=== PATIENT | female | born 1930 | race Caucasian/White ===

== ENCOUNTER 2017-08-18 09:31 | Inpatient (IN) | payer MEDICARE ==
[2017-08-18] MEDS: fentaNYL PF VIAL 100 MCG/2 ML VIAL IV ×3 (10:33→14:35)
[2017-08-18 10:43] LABS: ADD MAN DIFF? NO
[2017-08-18 10:45] LABS: BASO # 0.1 x10^3/uL (0.0-0.2); BASO % 1 % (0-3); EOS # 0.1 x10^3/uL (0.0-0.7); EOS % 1 % (0-3); HEMATOCRIT 45.5 % (36.0-47.0); HEMOGLOBIN 15.7 g/dL (12.0-15.5); LYMPH # 1.6 x10^3/uL (1.0-4.8); LYMPH % 20 % (24-48); MEAN CORPUSCULAR HEMOGLOBIN 32 pg (25-35); MEAN CORPUSCULAR HGB CONC 35 g/dL (31-37); MEAN CORPUSCULAR VOLUME 93 fL (79-100); MONO % 13 % (0-9); NEUT # 5.5 x10^3uL (1.8-7.7); NEUT % 66 % (31-73); PLATELET COUNT 208 x10^3/uL (140-400); RED CELL DISTRIBUTION WIDTH 14.3 % (11.5-14.5); WHITE BLOOD COUNT 8.3 x10^3/uL (4.0-11.0)
[2017-08-18 10:54] LABS: ANION GAP 9 (6-14); BLOOD UREA NITROGEN 14 mg/dL (7-20); BUN/CREATININE RATIO 18 (6-20); CALCIUM 9.6 mg/dL (8.5-10.1); CARBON DIOXIDE 28 mmol/L (21-32); CHLORIDE 104 mmol/L (98-107); CREATININE 0.8 mg/dL (0.6-1.0); GFR 68.2; GLUCOSE 112 mg/dL (70-99); SODIUM 141 mmol/L (136-145)
[2017-08-18 11:02] LABS: TROPONINI 0.029 ng/mL (0.000-0.055)
[2017-08-18 11:02] LABS: ALBUMIN 3.2 g/dL (3.4-5.0); ALBUMIN/GLOBULIN RATIO 0.8 (1.0-1.7); ALK PHOS 97 U/L (46-116); ALT (SGPT) 19 U/L (14-59); AST (SGOT) 26 U/L (15-37); TOTAL BILIRUBIN 0.7 mg/dL (0.2-1.0); TOTAL PROTEIN 7.3 g/dL (6.4-8.2)
[2017-08-18 11:05] LABS: NT-PRO BNP 584 pg/mL (0-449)
[2017-08-18] MEDS ORDERED: CONTRAST GIVEN MC (13:00)
[2017-08-18] MEDS: IOHEXOL 300 MG/ML 100ML VIAL. IV (13:01)
[2017-08-18 13:33] LABS: BILIRUBIN,URINE NEGATIVE (NEG); CLARITY,URINE CLEAR; COLOR,URINE YELLOW; GLUCOSE,URINE NEGATIVE (NEG); NITRITE,URINE POSITIVE (NEG); PROTEIN,URINE NEGATIVE (NEG-TRACE)
[2017-08-18 13:37] LABS: BARBITURATES NEG (NEG); BENZODIAZEPINES NEG (NEG); CANNABINOIDS NEG (NEG); COCAINE NEG (NEG); METHADONE NEG (NEG); OPIATES POS (NEG); PHENCYCLIDINE NEG (NEG)
[2017-08-18 13:42] LABS: AMPHETAMINE/METHAMPHETAMINE NEG (NEG); ETHANOL, URINE NEG (NEG)
[2017-08-18 13:48] LABS: BACTERIA,URINE MANY /HPF (0-FEW); RBC,URINE 0 /HPF (0-2); SQUAMOUS EPITHELIAL CELL,UR MANY /LPF; WBC,URINE >40 /HPF (0-4)
[2017-08-18] MEDS ORDERED: ACETAMINOPHEN 325 MG TABLET. PO ×2 (14:45→15:15)
[2017-08-18] MEDS ORDERED: MORPHINE SULFATE 4 MG/ML DISP.SYRIN. IV (14:45)
[2017-08-18] MEDS ORDERED: ONDANSETRON PF 4 MG/2 ML VIAL. IV ×2 (14:45→15:15)
[2017-08-18] MEDS ORDERED: DOCUSATE SODIUM 100 MG CAPSULE. PO (15:15)
[2017-08-18] MEDS ORDERED: QUEtiapine 25 MG TABLET. PO (15:15)
[2017-08-18] MEDS ORDERED: hydrALAZINE 20 MG/ML VIAL. IVP (15:15)
[2017-08-18] MEDS: NICOTINE 14MG PATCH. TD (15:30)
[2017-08-18] MEDS: ENOXAPARIN 40 MG/0.4 ML SYRINGE. SQ (16:00)
[2017-08-18] MEDS: IV NORMAL SALINE 1000ML BAG 1,000 ML IV (16:45)
[2017-08-18] MEDS: DONEPEZIL HCL 5 MG TABLET. PO (20:42)
[2017-08-18] MEDS: MORPHINE SULFATE 4 MG/ML DISP.SYRIN. IV (20:43)
[2017-08-19] MEDS: MORPHINE SULFATE 4 MG/ML DISP.SYRIN. IV ×4 (02:31→23:36)
[2017-08-19] MEDS: IV NORMAL SALINE 1000ML BAG 1,000 ML IV (04:18)
[2017-08-19 04:47] LABS: ADD MAN DIFF? NO
[2017-08-19 04:53] LABS: BASO # 0.1 x10^3/uL (0.0-0.2); BASO % 1 % (0-3); EOS # 0.2 x10^3/uL (0.0-0.7); EOS % 2 % (0-3); HEMATOCRIT 42.3 % (36.0-47.0); HEMOGLOBIN 14.6 g/dL (12.0-15.5); LYMPH # 1.8 x10^3/uL (1.0-4.8); LYMPH % 18 % (24-48); MEAN CORPUSCULAR HEMOGLOBIN 32 pg (25-35); MEAN CORPUSCULAR HGB CONC 35 g/dL (31-37); MEAN CORPUSCULAR VOLUME 93 fL (79-100); MONO # 1.1 x10^3/uL (0.0-1.1); MONO % 11 % (0-9); NEUT # 6.6 x10^3uL (1.8-7.7); NEUT % 68 % (31-73); PLATELET COUNT 187 x10^3/uL (140-400); RED BLOOD COUNT 4.55 x10^6/uL (3.50-5.40); RED CELL DISTRIBUTION WIDTH 13.9 % (11.5-14.5); WHITE BLOOD COUNT 9.7 x10^3/uL (4.0-11.0)
[2017-08-19 05:13] LABS: ANION GAP 10 (6-14); BLOOD UREA NITROGEN 13 mg/dL (7-20); CALCIUM 8.6 mg/dL (8.5-10.1); CARBON DIOXIDE 24 mmol/L (21-32); CHLORIDE 105 mmol/L (98-107); CREATININE 0.7 mg/dL (0.6-1.0); GFR 79.5; GLUCOSE 104 mg/dL (70-99); POTASSIUM 3.9 mmol/L (3.5-5.1); SODIUM 139 mmol/L (136-145)
[2017-08-19] MEDS: CHOLECALCIFEROL (VITAMIN D3) 1,000 UNIT TABLET PO (07:50)
[2017-08-19] MEDS: NICOTINE 14MG PATCH. TD (07:51)
[2017-08-19] MEDS: LIDOCAINE (700MG/PATCH) PATCH. TD (11:11)
[2017-08-19] MEDS: oxyCODONE/APAP 5/325 1 TAB TABLET PO ×2 (11:11→17:24)
[2017-08-19] MEDS: LORazepam 0.5 MG TABLET PO ×2 (12:14→23:36)
[2017-08-19] MEDS: cefTRIAXone IV Push 1 GM VIAL. IVP (15:20)
[2017-08-19] MEDS: ENOXAPARIN 40 MG/0.4 ML SYRINGE. SQ (16:00)
[2017-08-19] MEDS: HYDROcodone/APAP 5/325MG 1 TAB TABLET PO (18:47)
[2017-08-19] MEDS: LACTOBACILLUS RHAMNOSUS GG 1 CAPSULE. PO (21:00)
[2017-08-19] MEDS: PATCH REMOVAL. MC (21:00)
[2017-08-19] MEDS: DONEPEZIL HCL 5 MG TABLET. PO (21:00)
[2017-08-20] MEDS: HYDROcodone/APAP 5/325MG 1 TAB TABLET PO (03:09)
[2017-08-20 07:24] LABS: ADD MAN DIFF? NO
[2017-08-20 07:33] LABS: BASO # 0.1 x10^3/uL (0.0-0.2); BASO % 1 % (0-3); EOS # 0.2 x10^3/uL (0.0-0.7); EOS % 3 % (0-3); HEMATOCRIT 41.9 % (36.0-47.0); HEMOGLOBIN 14.3 g/dL (12.0-15.5); LYMPH # 1.7 x10^3/uL (1.0-4.8); LYMPH % 25 % (24-48); MEAN CORPUSCULAR HEMOGLOBIN 32 pg (25-35); MEAN CORPUSCULAR HGB CONC 34 g/dL (31-37); MEAN CORPUSCULAR VOLUME 93 fL (79-100); MONO % 15 % (0-9); NEUT # 3.9 x10^3uL (1.8-7.7); NEUT % 57 % (31-73); PLATELET COUNT 168 x10^3/uL (140-400); RED BLOOD COUNT 4.49 x10^6/uL (3.50-5.40); WHITE BLOOD COUNT 6.9 x10^3/uL (4.0-11.0)
[2017-08-20 07:47] LABS: ANION GAP 7 (6-14); BLOOD UREA NITROGEN 12 mg/dL (7-20); CALCIUM 8.5 mg/dL (8.5-10.1); CARBON DIOXIDE 24 mmol/L (21-32); CHLORIDE 107 mmol/L (98-107); CREATININE 0.7 mg/dL (0.6-1.0); GFR 79.5; GLUCOSE 95 mg/dL (70-99); POTASSIUM 3.7 mmol/L (3.5-5.1); SODIUM 138 mmol/L (136-145)
[2017-08-20] MEDS: LACTOBACILLUS RHAMNOSUS GG 1 CAPSULE. PO ×3 (08:21→21:00)
[2017-08-20] MEDS: CHOLECALCIFEROL (VITAMIN D3) 1,000 UNIT TABLET PO ×2 (08:22→08:29)
[2017-08-20] MEDS: NICOTINE 14MG PATCH. TD (08:24)
[2017-08-20] MEDS: MORPHINE SULFATE 4 MG/ML DISP.SYRIN. IV (08:26)
[2017-08-20] MEDS: LIDOCAINE (700MG/PATCH) PATCH. TD (08:26)
[2017-08-20 10:10] LABS: INR 1.1 (0.8-1.1); PARTIAL THROMBOPLASTIN TIME 30 SEC (24-38); PROTHROMBIN TIME PATIENT 13.9 SEC (11.7-14.0)
[2017-08-20] MEDS: oxyCODONE/APAP 5/325 1 TAB TABLET PO ×2 (11:43→16:01)
[2017-08-20] MEDS: ENOXAPARIN 40 MG/0.4 ML SYRINGE. SQ (13:55)
[2017-08-20] MEDS: LORazepam 0.5 MG TABLET PO (14:00)
[2017-08-20] MEDS: cefTRIAXone IV Push 1 GM VIAL. IVP (14:02)
[2017-08-20] MEDS: DONEPEZIL HCL 5 MG TABLET. PO (21:00)
[2017-08-20] MEDS: PATCH REMOVAL. MC (21:00)
[2017-08-21] MEDS: HYDROcodone/APAP 5/325MG 1 TAB TABLET PO ×2 (02:13→17:44)
[2017-08-21] MEDS ORDERED: LIDOCAINE 1% PF 2 ML VIAL. ID (07:00)
[2017-08-21] MEDS ORDERED: MORPHINE SULFATE 4 MG/ML DISP.SYRIN. IV (07:00)
[2017-08-21] MEDS ORDERED: HYDROmorphone 2 MG/ML VIAL IV (07:00)
[2017-08-21] MEDS ORDERED: fentaNYL PF VIAL 100 MCG/2 ML VIAL IV (07:00)
[2017-08-21] MEDS: IV RINGERS,LACTATED 1000ML 1,000 ML IV (07:00)
[2017-08-21] MEDS: NICOTINE 14MG PATCH. TD (09:00)
[2017-08-21] MEDS: LIDOCAINE (700MG/PATCH) PATCH. TD (09:00)
[2017-08-21] MEDS: oxyCODONE/APAP 5/325 1 TAB TABLET PO (09:10)
[2017-08-21] MEDS: LORazepam 0.5 MG TABLET PO (09:10)
[2017-08-21] MEDS: CHOLECALCIFEROL (VITAMIN D3) 1,000 UNIT TABLET PO (09:11)
[2017-08-21] MEDS: LACTOBACILLUS RHAMNOSUS GG 1 CAPSULE. PO ×2 (09:14→20:17)
[2017-08-21] MEDS: CIPROFLOXACIN HCL 250 MG TABLET. PO ×2 (10:28→20:17)
[2017-08-21] MEDS: IV NORMAL SALINE 1000ML BAG 1,000 ML IV (11:00)
[2017-08-21] MEDS ORDERED: IOHEXOL 240 MG/ML 50ML VIAL. (12:25)
[2017-08-21] MEDS ORDERED: LIDOCAINE WITH 8.4% SOD BICARB 3 ML DISP.SYRIN. (12:25)
[2017-08-21] MEDS ORDERED: CONTRAST GIVEN MC (13:00)
[2017-08-21] MEDS: IOHEXOL 240 MG/ML 50ML VIAL. IJ (13:00)
[2017-08-21] MEDS: LIDOCAINE WITH 8.4% SOD BICARB 3 ML DISP.SYRIN. IJ (13:00)
[2017-08-21] MEDS: fentaNYL PF VIAL 100 MCG/2 ML VIAL IV ×4 (14:06→15:01)
[2017-08-21] MEDS: PROCHLORPERAZINE 10 MG/2 ML VIAL. IV (14:23)
[2017-08-21] MEDS: ENOXAPARIN 40 MG/0.4 ML SYRINGE. SQ (16:00)
[2017-08-21] MEDS: MORPHINE SULFATE 4 MG/ML DISP.SYRIN. IV (16:15)
[2017-08-21] MEDS: PATCH REMOVAL. MC (19:14)
[2017-08-21] MEDS: traMADol 50 MG TABLET PO (20:17)
[2017-08-21] MEDS: DONEPEZIL HCL 5 MG TABLET. PO (20:17)
[2017-08-22 03:26] LABS: ADD MAN DIFF? NO
[2017-08-22 03:29] LABS: BASO # 0.1 x10^3/uL (0.0-0.2); BASO % 1 % (0-3); EOS # 0.2 x10^3/uL (0.0-0.7); EOS % 3 % (0-3); HEMATOCRIT 41.3 % (36.0-47.0); HEMOGLOBIN 14.1 g/dL (12.0-15.5); LYMPH # 1.9 x10^3/uL (1.0-4.8); LYMPH % 26 % (24-48); MEAN CORPUSCULAR HEMOGLOBIN 32 pg (25-35); MEAN CORPUSCULAR HGB CONC 34 g/dL (31-37); MEAN CORPUSCULAR VOLUME 93 fL (79-100); MONO % 14 % (0-9); NEUT # 4.3 x10^3uL (1.8-7.7); NEUT % 57 % (31-73); PLATELET COUNT 175 x10^3/uL (140-400); RED BLOOD COUNT 4.42 x10^6/uL (3.50-5.40); WHITE BLOOD COUNT 7.5 x10^3/uL (4.0-11.0)
[2017-08-22 04:04] LABS: ANION GAP 6 (6-14); BLOOD UREA NITROGEN 10 mg/dL (7-20); CALCIUM 8.8 mg/dL (8.5-10.1); CARBON DIOXIDE 25 mmol/L (21-32); CHLORIDE 106 mmol/L (98-107); CREATININE 0.6 mg/dL (0.6-1.0); GLUCOSE 97 mg/dL (70-99); POTASSIUM 3.9 mmol/L (3.5-5.1); SODIUM 137 mmol/L (136-145)
[2017-08-22] MEDS: NICOTINE 14MG PATCH. TD (09:24)
[2017-08-22] MEDS: LACTOBACILLUS RHAMNOSUS GG 1 CAPSULE. PO (09:24)
[2017-08-22] MEDS: CHOLECALCIFEROL (VITAMIN D3) 1,000 UNIT TABLET PO (09:24)
[2017-08-22] MEDS: LIDOCAINE (700MG/PATCH) PATCH. TD (09:24)
[2017-08-22] MEDS: CIPROFLOXACIN HCL 250 MG TABLET. PO (09:26)
[2017-08-22] MEDS: ENOXAPARIN 40 MG/0.4 ML SYRINGE. SQ (16:00)
== END 2017-08-22 16:10 | DRG 516 ==
LOC: ER 09:31 → 6 SOUTH 14:25
PROC: 0PS43ZZ Reposition Thoracic Vertebra, Percutaneous Approach (ICD-10-PCS; principal; 2017-08-21)
PROC: 0PU43JZ Supplement Thoracic Vertebra with Synthetic Substitute, Percutaneous Approach (ICD-10-PCS; 2017-08-21)
DX: S22.089A Unspecified fracture of T11-T12 vertebra, initial encounter for closed fracture (principal); E44.1 Mild protein-calorie malnutrition; G62.9 Polyneuropathy, unspecified; G30.9 Alzheimer's disease, unspecified; F02.80 Dementia in other diseases classified elsewhere, unspecified severity, without behavioral disturbance, psychotic disturbance, mood disturbance, and anxiety; N39.0 Urinary tract infection, site not specified; M48.061 Spinal stenosis, lumbar region without neurogenic claudication; W18.39XA Other fall on same level, initial encounter; B96.89 Other specified bacterial agents as the cause of diseases classified elsewhere; Z96.641 Presence of right artificial hip joint; Z96.659 Presence of unspecified artificial knee joint; M16.12 Unilateral primary osteoarthritis, left hip; Z66 Do not resuscitate; Z87.891 Personal history of nicotine dependence; Z68.24 Body mass index [BMI] 24.0-24.9, adult; Y93.89 Activity, other specified; Y92.89 Other specified places as the place of occurrence of the external cause; Y99.8 Other external cause status
CPT/HCPCS: 22513; 36415; 70450; 71045; 72100; 72125; 72146; 72148; 73502; 74177; 80048; 80053; 80307; 81001; 82306; 83880; 84484; 85025; 85610; 85730; 87086; 93005; 96365; 96375; 96376; 97162-GP; 97166-GO; 97530-GO; 97530-GP; 99285; 99285-25; C1758; C1892; J0690; J0696; J0780; J2270; J3010; J7030; Q9966; Q9967

== ENCOUNTER 2019-03-11 10:04 | Inpatient (IN) | payer MEDICARE, MEDICAID ==
[~2019-03-11] VITALS: Ht 165.1 cm; Wt 76.7 kg
[~2019-03-11 10:04] MED LIST: ACET160O49 PO; ACET325T9 PO; ACET500T68 PO; ALPR0.5T6 PO; AMOX500C PO; ASCO500T2 PO; BISA10SU4 RC; BISM262O20 PO; CHOL10003 PO; CIPR500T94 PO; DONE5TAB7 PO; GUAI118L59 PO; HEPA50003 SQ; HYDR-2761 PO; LACT1CAP19 PO; LOPE2TAB56 PO; MAG355OR11 PO; MAGN2400 PO; MENT113O5 TP; MULT1TAB90 PO; NA P133E2 RC; NEOM1PAC TP; NICO1PAT25 TP; NYST60PO TP; PROC25SU21 RC; [UNRECOGNIZED DRUG - CODE] PO
--- NOTE | 2019-03-11 10:45 | PHYS DOC ---
Past Medical History Past Medical History: Dementia, Other Additional Past Medical Histor: "BLADDER CONTROL PROBLEMS","MEMORY PROBLEMS",ALZHEIMER'S Past Surgical History: Hip Replacement, Knee Replacement Alcohol Use: Heavy Drug Use: None Adult General Chief Complaint Chief Complaint: WOUND CHECK HPI HPI Patient is a 88 year old female patient resident of correction with history of dementia who presents EMS because of bilateral leg edema. Patient has dementia and is alert and oriented 1 and unable to give history. [facility] staff reported that she has had bilateral lower extremity erythema and edema for 3 weeks that did not get better with 3 courses of oral antibiotic and refused to take oral medication. Review of Systems Review of Systems Unable to obtain because of dementia Allergies Allergies Allergies Coded Allergies Type Severity Reaction Last Updated Verified No Known Drug Allergies 09/16/14 No Physical Exam Physical Exam Constitutional: Mild distress, non-toxic appearance. [] HENT: Normocephalic, atraumatic. Eyes: PERRLA, EOMI, conjunctiva normal, no discharge. [] Neck: Normal range of motion, no tenderness, supple, no stridor. [] Cardiovascular:Heart rate regular rhythm, no murmur [] Lungs & Thorax: Bilateral breath sounds clear to auscultation [] Abdomen: Bowel sounds normal, soft, no tenderness, no masses, no pulsatile masses. [] Skin: Warm, dry, no erythema, no rash. [] Extremities: Bilateral lower extremity with edema and erythema from toes to knees with a large wound in dorsal side of right foot Neurologic: Alert and oriented X 1, no focal deficits noted. [] Psychologic: Affect anxious, unable to evaluate Current Patient Data Vital Signs Vital Signs Date Time Temp Pulse Resp B/P (MAP) Pulse Ox O2 Delivery O2 Flow Rate FiO2 03/11/19 10:22 98.1 80 20 125/80 (95) 95 Room Air 98.1 EKG EKG [] Radiology/Procedures Radiology/Procedures [][facility] [address] [place] [address] IMAGING REPORT Signed PATIENT: JEROME MOSESUNT: [id number] : 1930 LOCATION: [facility]TH AGE: 88 SEX: F EXAM STATUS: ADM IN ORD. PHYSICIAN: JESSICA DAMON MD REASON: bilateral lower extremity infection PROCEDURE: PORTABLE CHEST 1V EXAM: CHEST ONE VIEW. HISTORY: Infection. COMPARISON: 08/18/2017. FINDINGS: A frontal view of the chest is obtained. The right hemidiaphragm is mildly elevated. Linear opacities in both bases most likely indicate atelectasis. A small right pleural effusion cannot be excluded. There is no pneumothorax. The heart is not enlarged. There are atherosclerotic calcifications of the aorta. IMPRESSION: 1. Suspect a small right pleural effusion. Mild basilar atelectasis. Electronically signed by: Harleen Cabello MD (03/11/2019 11:53 AM) [facility] DICTATED and SIGNED BY: RADHA CABELLO MD DATE: 03/11/19 1155 Course & Med Decision Making Course & Med Decision Making Pertinent Labs and Imaging studies reviewed. (See chart for details) Evaluation of patient in ER showed 88-year-old male patient resident of correction with history of dementia brought in because of bilateral lower extremity cellulitis that did not get better with several course of antibiotic given at correction. Patient was afebrile without tachycardia, hypotension, leukocytosis. Lactic acid was mildly elevated. Patient treated with antibiotic in ER. Patient requiring admission for further evaluation and treatment. Discussed with Dr. Cortez who is in agreement with admission. Discussed findings and plan with patient and family, who acknowledge understanding and agreement. Dragon Disclaimer Dragon Disclaimer This electronic medical record was generated, in whole or in part, using a voice recognition dictation system. Departure Departure Impression: Primary Impression: Bilateral lower leg cellulitis Disposition: ADMITTED INPATIENT (at 11:30) Admitting Physician: FREDDIE (Dr Cortez accepted admission at 1129) Condition: IMPROVED Referrals: AUSTIN PAEZ MD (PCP) Date and Time of Reassessment Date: Mar 11, 2019 Time: 11:30 Fluid Challenge Is the fluid challenge complet: No (No hypotension, tachycardia,fever) IBW Target Volume Used: No BMI > 30: No Vital Signs Vital Signs: Vital Signs Date Time Temp Pulse Resp B/P (MAP) Pulse Ox O2 Delivery O2 Flow Rate FiO2 03/11/19 10:22 98.1 80 20 125/80 (95) 95 Room Air 98.1 Temperature Source: Oral Respirations Respiratory Effort: Normal, Non-Labored Respiratory Pattern: Normal Cardiovascular Pulse Rhythm: Regular Heart: Nml rate, reg. rhythm Lung Sounds Breath Sounds: Clear Capillary Refil Capillary Refill: Rt Hand < 3 seconds Peripheral Pulse Pulse Location: Radial Pulse Strength: Weak (1+) Pulse Assessment Method: NIBP Integumentary Skin Moisture: Dry JESSICA DAMON MD Mar 11, 2019 10:45
[2019-03-11 11:32] LABS: BASO # 0.1 x10^3/uL (0.0-0.2); BASO % 1 % (0-3); EOS # 0.1 x10^3/uL (0.0-0.7); EOS % 1 % (0-3); HEMOGLOBIN 14.1 g/dL (12.0-15.5); LYMPH # 1.1 x10^3/uL (1.0-4.8); LYMPH % 17 % (24-48); MEAN CORPUSCULAR HEMOGLOBIN 31 pg (25-35); MEAN CORPUSCULAR HGB CONC 34 g/dL (31-37); MEAN CORPUSCULAR VOLUME 91 fL (79-100); MONO # 1.3 x10^3/uL (0.0-1.1); MONO % 20 % (0-9); NEUT # 3.8 x10^3/uL (1.8-7.7); NEUT % 61 % (31-73); PLATELET COUNT 194 x10^3/uL (140-400); RED BLOOD COUNT 4.61 x10^6/uL (3.50-5.40); RED CELL DISTRIBUTION WIDTH 14.5 % (11.5-14.5); WHITE BLOOD COUNT 6.3 x10^3/uL (4.0-11.0)
[2019-03-11] MEDS ORDERED: VANCOMYCIN 1GM IVPB FOR OMNI 250 ML IV ONE (11:45)
[2019-03-11 11:46] LABS: GFR 52.6; POTASSIUM 3.9 mmol/L (3.5-5.1)
--- NOTE | 2019-03-11 11:55 | RAD ---
EXAM: CHEST ONE VIEW. HISTORY: Infection. COMPARISON: 08/18/2017. FINDINGS: A frontal view of the chest is obtained. The right hemidiaphragm is mildly elevated. Linear opacities in both bases most likely indicate atelectasis. A small right pleural effusion cannot be excluded. There is no pneumothorax. The heart is not enlarged. There are atherosclerotic calcifications of the aorta. IMPRESSION: 1. Suspect a small right pleural effusion. Mild basilar atelectasis. Electronically signed by: Harleen Cabello MD (03/11/2019 11:53 AM) [facility]
[2019-03-11 11:59] LABS: ALBUMIN 2.9 g/dL (3.4-5.0); ALBUMIN/GLOBULIN RATIO 0.7 (1.0-1.7); TOTAL BILIRUBIN 0.2 mg/dL (0.2-1.0); TOTAL PROTEIN 6.8 g/dL (6.4-8.2)
[2019-03-11 12:04] LABS: % BASOS 1 % (0-3); % EOS 1 % (0-5); % LYMPHS 27 % (24-48); % MONOS 15 % (0-10); % SEGS 56 % (35-66); PLT ESTIMATE ADEQUATE (ADEQUATE)
[2019-03-11 12:10] VITALS: BP 106/58
--- NOTE | 2019-03-11 13:26 | NUR ---
pt was supposed to have been given a dose of IV vanco in ER, was not given before coming to the floor, discussed with Dr. toro, was told to wait until ID sees pt and decides what ATB to use.
--- NOTE | 2019-03-11 14:22 | NUR ---
Wound Care Wound care consult for BLE cellulitis with VLU's. Cleansed areas, measured wounds and redressed with Medihoney, Xeroform, ABD's and Kerlix. No other wounds noted on full skin inspection. Pt left on her left side with heels floated. WC will continue to follow for possible changes. Pt has wound to right forehead that she is refusing assessment of at this time.
--- NOTE | 2019-03-11 14:30 | PDOC ---
Infectious Disease Note Vital Sign Vital Signs Vital Signs Date Time Temp Pulse Resp B/P (MAP) Pulse Ox O2 Delivery O2 Flow Rate FiO2 03/11/19 13:28 Room Air 03/11/19 12:10 76 18 106/58 (74) 93 03/11/19 10:22 98.1 98.1 Labs Lab Laboratory Tests Test 03/11/19 11:10 White Blood Count 6.3 x10^3/uL (4.0-11.0) Red Blood Count 4.61 x10^6/uL (3.50-5.40) Hemoglobin 14.1 g/dL (12.0-15.5) Hematocrit 42.0 % (36.0-47.0) Mean Corpuscular Volume 91 fL (79-100) Mean Corpuscular Hemoglobin 31 pg (25-35) Mean Corpuscular Hemoglobin Concent 34 g/dL (31-37) Red Cell Distribution Width 14.5 % (11.5-14.5) Platelet Count 194 x10^3/uL (140-400) Neutrophils (%) (Auto) 61 % (31-73) Lymphocytes (%) (Auto) 17 % (24-48) Monocytes (%) (Auto) 20 % (0-9) Eosinophils (%) (Auto) 1 % (0-3) Basophils (%) (Auto) 1 % (0-3) Neutrophils # (Auto) 3.8 x10^3/uL (1.8-7.7) Lymphocytes # (Auto) 1.1 x10^3/uL (1.0-4.8) Monocytes # (Auto) 1.3 x10^3/uL (0.0-1.1) Eosinophils # (Auto) 0.1 x10^3/uL (0.0-0.7) Basophils # (Auto) 0.1 x10^3/uL (0.0-0.2) Segmented Neutrophils % 56 % (35-66) Lymphocytes % 27 % (24-48) Monocytes % 15 % (0-10) Eosinophils % 1 % (0-5) Basophils % 1 % (0-3) Platelet Estimate Adequate (ADEQUATE) Prothrombin Time 14.0 SEC (11.7-14.0) Prothromb Time International Ratio 1.1 (0.8-1.1) Activated Partial Thromboplast Time 30 SEC (24-38) Sodium Level 140 mmol/L (136-145) Potassium Level 3.9 mmol/L (3.5-5.1) Chloride Level 103 mmol/L (98-107) Carbon Dioxide Level 29 mmol/L (21-32) Anion Gap 8 (6-14) Blood Urea Nitrogen 12 mg/dL (7-20) Creatinine 1.0 mg/dL (0.6-1.0) Estimated GFR (Cockcroft-Gault) 52.6 BUN/Creatinine Ratio 12 (6-20) Glucose Level 100 mg/dL (70-99) Lactic Acid Level 3.0 mmol/L (0.4-2.0) Calcium Level 9.0 mg/dL (8.5-10.1) Total Bilirubin 0.2 mg/dL (0.2-1.0) Aspartate Amino Transf (AST/SGOT) 37 U/L (15-37) Alanine Aminotransferase (ALT/SGPT) 31 U/L (14-59) Alkaline Phosphatase 89 U/L (46-116) VA-Ype-C-Type Natriuretic Peptide 156 pg/mL (0-449) Total Protein 6.8 g/dL (6.4-8.2) Albumin 2.9 g/dL (3.4-5.0) Albumin/Globulin Ratio 0.7 (1.0-1.7) Objective Assessment Fabian LE celllulitis Bilat foot wounds Lactic acidosis Tinea LE edema Recent Rocephin/keflex/diflucan Plan Plan of Care Given recent abx will dose Meropenem/Micafungin and Daptomycin F/u labs and cults D/w nursing and wound care team Wound care per primary and wound care team [facility] records reviewed Thank you # [id number] JOSE L FREEMAN MD Mar 11, 2019 14:30
--- NOTE | 2019-03-11 14:59 | HP ---
ADMIT DATE: 03/11/2019 CHIEF COMPLAINT: Foot infection. HISTORY OF PRESENT ILLNESS: The patient is a pleasant 88-year-old female, who presented to the ER with bilateral foot pain and swelling. There is some drainage. She has obvious cellulitis, rates her pain 10/10. She appears to be depressed. She is very sarcastic at times. She states she increased her home meds. Moving makes it worse, sitting still makes it better. Describes as agonizing. I discussed the case with ER physician. We are going to admit the patient with consultation to Infectious Disease. She also has an abnormal chest x-ray with some atelectasis and pleural effusion. We are going to consult Pulmonary Medicine for that. PAST MEDICAL HISTORY: Dementia, hip replacement, knee replacement. ALLERGIES: None. FAMILY HISTORY: Hypertension. SOCIAL HISTORY: From the record, it appears she drinks heavily. No drugs or smoking. MEDICATIONS: Reviewed, please refer to the MRAD. REVIEW OF SYSTEMS: GENERAL: No history of weight change, weakness or fevers. SKIN: No bruising, hair changes or rashes. EYES: No blurred, double or loss of vision. NOSE AND THROAT: No history of nosebleeds, hoarseness or sore throat. HEART: No history of palpitations, chest pain or shortness of breath on exertion. LUNGS: Denies cough, hemoptysis, wheezing or shortness of breath. GASTROINTESTINAL: Denies changes in appetite, nausea, vomiting, diarrhea or constipation. GENITOURINARY: No history of frequency, urgency, hesitancy or nocturia. NEUROLOGIC: Denies history of numbness, tingling, tremor or weakness. PSYCHIATRIC: No history of panic, anxiety or depression. ENDOCRINE: No history of heat or cold intolerance, polyuria or polydipsia. EXTREMITIES: She complains of bilateral foot pain and erythema. PHYSICAL EXAMINATION: VITALS: Within normal limits and are stable. GENERAL: No apparent distress. Alert and oriented. HEENT: Head is normocephalic, atraumatic, pupils were equally round and reactive to light and accommodation. NECK: Supple, no JVD, no thyromegaly was noted. LUNGS: Clear to auscultation in all lung haley without rhonchi or wheezing. HEART: RRR, S1, S2 present. Peripheral pulses intact, no obvious murmurs were noted. ABDOMEN: Soft, nontender. Positive bowel sounds no organomegaly, normal bowel sounds. EXTREMITIES: She has bilateral foot cellulitis with some swelling and discharge. Please see the pictures. NEUROLOGIC: Normal speech, normal tone. A & O x 3, moves all extremities, no obvious focal deficits. PSYCHIATRIC: Normal affect, normal mood. Stable. SKIN: No ulcerations or rashes, good skin turgor, no jaundice. VASCULAR: Good capillary refill, neurovascular bundle appears to be intact. LABORATORY DATA: Her white count is 6. Electrolytes are normal. INR is 1. Chest x-ray shows pleural effusion and atelectasis. ASSESSMENT AND PLAN: Bilateral lower extremity cellulitis. The patient is being admitted. We will start IV antibiotics. We will consult Infectious Disease and Pulmonary Medicine. Physical therapy, occupational therapy, deep venous thrombosis prophylaxis. Full code. Home meds. Long-term prognosis is guarded. MAYELIN GONGORA DO DR: FARTUN/pascael JOB#: [id number] / [id number]
[2019-03-11 15:00] VITALS: BP 110/50
[2019-03-11] MEDS: MEROPENEM 500 MG in IV NORMAL SALINE 50ML 50 ML IV SCH ×2 (15:14→20:05)
[2019-03-11] MEDS: DAPTOmycin (GENERIC) IVPB 420 MG in IV NORMAL SALINE 50ML 50 ML IV SCH (15:45)
[2019-03-11] MEDS ORDERED: DOCU100C28 PO (15:54)
[2019-03-11] MEDS: MICAFUNGIN 100 MG in IV DEXTROSE 5% 100ML 100 ML IV SCH (16:22)
--- NOTE | 2019-03-11 16:29 | PDOC ---
PULMONARY PROGRESS NOTES Vitals Vital Signs Date Time Temp Pulse Resp B/P (MAP) Pulse Ox O2 Delivery O2 Flow Rate FiO2 03/11/19 13:28 Room Air 03/11/19 12:10 76 18 106/58 (74) 93 03/11/19 10:22 98.1 98.1 Lungs: Clear, Other Labs Laboratory Tests Test 03/11/19 11:10 03/11/19 14:55 White Blood Count 6.3 x10^3/uL (4.0-11.0) Red Blood Count 4.61 x10^6/uL (3.50-5.40) Hemoglobin 14.1 g/dL (12.0-15.5) Hematocrit 42.0 % (36.0-47.0) Mean Corpuscular Volume 91 fL (79-100) Mean Corpuscular Hemoglobin 31 pg (25-35) Mean Corpuscular Hemoglobin Concent 34 g/dL (31-37) Red Cell Distribution Width 14.5 % (11.5-14.5) Platelet Count 194 x10^3/uL (140-400) Neutrophils (%) (Auto) 61 % (31-73) Lymphocytes (%) (Auto) 17 % (24-48) Monocytes (%) (Auto) 20 % (0-9) Eosinophils (%) (Auto) 1 % (0-3) Basophils (%) (Auto) 1 % (0-3) Neutrophils # (Auto) 3.8 x10^3/uL (1.8-7.7) Lymphocytes # (Auto) 1.1 x10^3/uL (1.0-4.8) Monocytes # (Auto) 1.3 x10^3/uL (0.0-1.1) Eosinophils # (Auto) 0.1 x10^3/uL (0.0-0.7) Basophils # (Auto) 0.1 x10^3/uL (0.0-0.2) Segmented Neutrophils % 56 % (35-66) Lymphocytes % 27 % (24-48) Monocytes % 15 % (0-10) Eosinophils % 1 % (0-5) Basophils % 1 % (0-3) Platelet Estimate Adequate (ADEQUATE) Prothrombin Time 14.0 SEC (11.7-14.0) Prothromb Time International Ratio 1.1 (0.8-1.1) Activated Partial Thromboplast Time 30 SEC (24-38) Sodium Level 140 mmol/L (136-145) Potassium Level 3.9 mmol/L (3.5-5.1) Chloride Level 103 mmol/L (98-107) Carbon Dioxide Level 29 mmol/L (21-32) Anion Gap 8 (6-14) Blood Urea Nitrogen 12 mg/dL (7-20) Creatinine 1.0 mg/dL (0.6-1.0) Estimated GFR (Cockcroft-Gault) 52.6 BUN/Creatinine Ratio 12 (6-20) Glucose Level 100 mg/dL (70-99) Lactic Acid Level 3.0 mmol/L (0.4-2.0) 2.0 mmol/L (0.4-2.0) Calcium Level 9.0 mg/dL (8.5-10.1) Total Bilirubin 0.2 mg/dL (0.2-1.0) Aspartate Amino Transf (AST/SGOT) 37 U/L (15-37) Alanine Aminotransferase (ALT/SGPT) 31 U/L (14-59) Alkaline Phosphatase 89 U/L (46-116) DQ-Pcb-N-Type Natriuretic Peptide 156 pg/mL (0-449) Total Protein 6.8 g/dL (6.4-8.2) Albumin 2.9 g/dL (3.4-5.0) Albumin/Globulin Ratio 0.7 (1.0-1.7) Laboratory Tests Test 03/11/19 11:10 03/11/19 14:55 White Blood Count 6.3 x10^3/uL (4.0-11.0) Red Blood Count 4.61 x10^6/uL (3.50-5.40) Hemoglobin 14.1 g/dL (12.0-15.5) Hematocrit 42.0 % (36.0-47.0) Mean Corpuscular Volume 91 fL (79-100) Mean Corpuscular Hemoglobin 31 pg (25-35) Mean Corpuscular Hemoglobin Concent 34 g/dL (31-37) Red Cell Distribution Width 14.5 % (11.5-14.5) Platelet Count 194 x10^3/uL (140-400) Neutrophils (%) (Auto) 61 % (31-73) Lymphocytes (%) (Auto) 17 % (24-48) Monocytes (%) (Auto) 20 % (0-9) Eosinophils (%) (Auto) 1 % (0-3) Basophils (%) (Auto) 1 % (0-3) Neutrophils # (Auto) 3.8 x10^3/uL (1.8-7.7) Lymphocytes # (Auto) 1.1 x10^3/uL (1.0-4.8) Monocytes # (Auto) 1.3 x10^3/uL (0.0-1.1) Eosinophils # (Auto) 0.1 x10^3/uL (0.0-0.7) Basophils # (Auto) 0.1 x10^3/uL (0.0-0.2) Segmented Neutrophils % 56 % (35-66) Lymphocytes % 27 % (24-48) Monocytes % 15 % (0-10) Eosinophils % 1 % (0-5) Basophils % 1 % (0-3) Platelet Estimate Adequate (ADEQUATE) Prothrombin Time 14.0 SEC (11.7-14.0) Prothromb Time International Ratio 1.1 (0.8-1.1) Activated Partial Thromboplast Time 30 SEC (24-38) Sodium Level 140 mmol/L (136-145) Potassium Level 3.9 mmol/L (3.5-5.1) Chloride Level 103 mmol/L (98-107) Carbon Dioxide Level 29 mmol/L (21-32) Anion Gap 8 (6-14) Blood Urea Nitrogen 12 mg/dL (7-20) Creatinine 1.0 mg/dL (0.6-1.0) Estimated GFR (Cockcroft-Gault) 52.6 BUN/Creatinine Ratio 12 (6-20) Glucose Level 100 mg/dL (70-99) Lactic Acid Level 3.0 mmol/L (0.4-2.0) 2.0 mmol/L (0.4-2.0) Calcium Level 9.0 mg/dL (8.5-10.1) Total Bilirubin 0.2 mg/dL (0.2-1.0) Aspartate Amino Transf (AST/SGOT) 37 U/L (15-37) Alanine Aminotransferase (ALT/SGPT) 31 U/L (14-59) Alkaline Phosphatase 89 U/L (46-116) QZ-Jvi-L-Type Natriuretic Peptide 156 pg/mL (0-449) Total Protein 6.8 g/dL (6.4-8.2) Albumin 2.9 g/dL (3.4-5.0) Albumin/Globulin Ratio 0.7 (1.0-1.7) Medications Active Scripts Medications Dose Route/Sig Max Daily Dose Days Date Category Docusate Sodium 100 Mg Capsule 1 Cap PO HS 30 03/11/19 Reported Tylenol (Acetaminophen) 325 Mg Tablet 2 Tab PO PRN Q6HRS PRN 08/18/17 Reported Hydrocodone-Apap 5-325 (Hydrocodone Bit/Acetaminophen) 1 Each Tablet 1 Tab PO PRN Q6HRS PRN 05/10/17 Reported Impression . FULL NOTE DICTATED AGREE WITH CURRENT RX POSSIBLE PNEUMONIA WILL FOLLOW ROEL JONES MD Mar 11, 2019 16:29
[2019-03-11 19:00] VITALS: BP 136/60
[2019-03-11] MEDS: ACETAMINOPHEN 325 MG TABLET. PO PRN (20:05)
--- NOTE | 2019-03-11 23:20 | CONS ---
DATE OF CONSULTATION: 03/11/2019 REQUESTING PHYSICIAN: Dr. Dave. REASON FOR CONSULTATION: Bilateral lower extremity edema. HISTORY OF PRESENT ILLNESS: The patient is an 88-year-old female who is a resident at [facility]. According to her records, she developed blisters and irritation to dorsal of both feet, first noticed on 02/08/2019 by nursing. Apparently, the rash occurred after she was wearing some old shoes and then she developed some fluid-filled blisters with oozing with serous drainage. Over this period of time, she has received cephalexin, fluconazole and some Rocephin. Despite this, her lower extremity wounds became worse. Apparently, she was noncompliant with her oral antibiotics. Because of the worsening and increasing pain, she was sent to [facility] Emergency Room on 03/11/2019. On arrival, she had a white count of 6.3 with 15% monos, 56 segs, normal liver function study tests. Chest x-ray was obtained, questionable small right pleural effusions, some mild atelectasis. She was given a dose of vancomycin, cefazolin and admitted to the floor. Currently, she is sitting upright in bed. She denies any fevers or chills or sweats. She has no headaches, sore throat, cough or chest pain. Denies any shortness of air. No nausea, vomiting or diarrhea. PAST MEDICAL HISTORY: Positive for bladder control problems, Alzheimer's, history of alcohol abuse, history of cellulitis in her buttock with yeast dermatitis, history of transaminitis, history of Klebsiella UTI. PAST SURGICAL HISTORY: Positive for hip replacement and knee replacements. REVIEW OF SYSTEMS: Otherwise negative except what is mentioned above. ALLERGIES: No known drug allergies. SOCIAL HISTORY: She has a history of smoking in the past, history of heavy alcohol use. She is now a long-term resident. FAMILY HISTORY: Noncontributory. CURRENT MEDICATIONS: Again, she received vancomycin and cefazolin x 1. There are no medications written for, otherwise, here in the hospital. PHYSICAL EXAMINATION: VITAL SIGNS: Temperature 98.1, pulse 76, respirations 18, blood pressure 106/58, satting 93% on room air. CONSTITUTIONAL: She is alert. She is cooperative. She is in no acute distress. HEENT: She has normal conjunctivae. Oral cavity and pharynx is clear. NECK: Supple, no JVD. LUNGS: Decreased in the bases. HEART: S1, S2. ABDOMEN: Soft, nontender, no guarding or rebound. EXTREMITIES: Without clubbing, cyanosis bilaterally. She has erythema from the tips of her toes to the third of her tibia. She has 2-3+ pitting edema. She does have tinea. She has ruptured bulla lesions with erythematous bases and serous drainage. There is no gross odor. There is tenderness and some slight warmth. She does have pulses in her dorsalis area. Posterior tibial were difficult to assess. SKIN: Otherwise, warm without signs of rash. NEUROLOGIC: She is nonfocal, but forgetful. PSYCHIATRIC: Affect is appropriate. LABORATORY DATA: White count 6.3, hemoglobin 14.1, platelets 194, neutrophils 61, lymphs 17, monos are 20. Glucose 100, creatinine of 1. Normal liver function study test. Lactic acid was 3. Chest x-ray reviewed in history of present illness. IMPRESSION: 1. Bilateral lower extremity cellulitis. 2. Bilateral foot wounds. 3. Lactic acidosis. 4. Tinea. 5. Lower extremity edema. 6. Recent Rocephin, cephalexin, fluconazole, Diflucan. RECOMMENDATIONS: Given her recent antimicrobial use in the history of Klebsiella urinary tract infection, we will dose meropenem and also give micafungin. She is also at risk for Staph, so we will dose daptomycin avoiding further vancomycin given her age and risk for acute kidney injury. We will follow up labs and cultures. This was discussed with nursing and wound care team. Wound care per primary and wound care team. I did review her [facility] records as well. Thank you for allowing me to see and participate in the patient's care. If you have any questions, please do not hesitate to contact me. JOSE L FREEMAN MD DR: ASHISH/pascale JOB#: [id number] / [id number]
--- NOTE | 2019-03-11 23:38 | CONS ---
DATE OF CONSULTATION: 03/11/2019 ATTENDING PHYSICIAN: Dr. Dave. REASON FOR CONSULTATION: The patient was seen in pulmonary consultation at the request of Dr. Dave for abnormal x-ray. HISTORY OF PRESENT ILLNESS: The patient is an 88-year-old with dementia, unable to provide much history. She did know her name and date of , but she could not recall if she smoked. She presented to the Emergency Room according to the documentation with a history of dementia and a wound check. She was evaluated and underwent a chest x-ray, which revealed atelectasis and small right-sided effusion. She has been seen in consultation by the Infectious Disease Service and is currently being treated for bilateral lower extremity cellulitis, bilateral foot wound along with tinea. She is on meropenem, micafungin and daptomycin. PAST MEDICAL HISTORY: Obtained by reviewing the current documentation. She apparently has had Alzheimer dementia, hip replacement and knee replacement. ALLERGIES: No known drug allergies. FAMILY HISTORY: Hypertension. SOCIAL HISTORY: Unknown if she smokes. REVIEW OF SYSTEMS: Unobtainable secondary to the patient's condition. ALLERGIES: No known drug allergies listed. PHYSICAL EXAMINATION: VITAL SIGNS: The patient had a T-max of 98.1. She was on room air saturation 93%. HEENT: Eyes, the sclerae were nonicteric. NECK: Jugular venous distention was not elevated. No lymphadenopathy. CHEST: Full expansion. LUNGS: Crackles in the bases, adequate airway flow. CARDIOVASCULAR: Regular rate and rhythm with S1, S2, no S3. ABDOMEN: Soft. EXTREMITIES: Evidence of cellulitis. NEUROLOGIC: The patient was awake, alert, following commands. A detailed neuro exam was not performed. LABORATORY DATA: Reviewed. White count was normal. Hemoglobin and hematocrit were noted. Electrolytes were noted. Chest x-ray as indicated above. IMPRESSION: 1. Abnormal x-ray revealing mostly atelectasis with a right-sided small effusion. 2. Bilateral lower extremity cellulitis. 3. Bilateral foot wounds. 4. Lactic acidosis. 5. Possible pneumonia. PLAN: 1. Continue current antibiotics per Infectious Disease service. 2. We will follow clinical course and make adjustments depending on the patient's clinical response. 3. Repeat lactic acid level. I do appreciate the privilege in sharing in the patient's care. ROEL JONES MD DR: Ronan JOB#: [id number] / [id number]
[2019-03-12] MEDS: ACETAMINOPHEN 325 MG TABLET. PO PRN ×3 (02:45→21:53)
[2019-03-12 03:00] VITALS: BP 113/59
[2019-03-12] MEDS: MEROPENEM 500 MG in IV NORMAL SALINE 50ML 50 ML IV SCH ×3 (05:58→21:43)
[2019-03-12 07:00] VITALS: BP 113/83
--- NOTE | 2019-03-12 08:27 | PDOC ---
PULMONARY PROGRESS NOTES Vitals Vital Signs Date Time Temp Pulse Resp B/P (MAP) Pulse Ox O2 Delivery O2 Flow Rate FiO2 03/12/19 03:00 98.2 80 18 113/59 (77) 94 Room Air 98.2 Lungs: Clear, Other Labs Laboratory Tests Test 03/11/19 11:10 03/11/19 14:55 White Blood Count 6.3 x10^3/uL (4.0-11.0) Red Blood Count 4.61 x10^6/uL (3.50-5.40) Hemoglobin 14.1 g/dL (12.0-15.5) Hematocrit 42.0 % (36.0-47.0) Mean Corpuscular Volume 91 fL (79-100) Mean Corpuscular Hemoglobin 31 pg (25-35) Mean Corpuscular Hemoglobin Concent 34 g/dL (31-37) Red Cell Distribution Width 14.5 % (11.5-14.5) Platelet Count 194 x10^3/uL (140-400) Neutrophils (%) (Auto) 61 % (31-73) Lymphocytes (%) (Auto) 17 % (24-48) Monocytes (%) (Auto) 20 % (0-9) Eosinophils (%) (Auto) 1 % (0-3) Basophils (%) (Auto) 1 % (0-3) Neutrophils # (Auto) 3.8 x10^3/uL (1.8-7.7) Lymphocytes # (Auto) 1.1 x10^3/uL (1.0-4.8) Monocytes # (Auto) 1.3 x10^3/uL (0.0-1.1) Eosinophils # (Auto) 0.1 x10^3/uL (0.0-0.7) Basophils # (Auto) 0.1 x10^3/uL (0.0-0.2) Segmented Neutrophils % 56 % (35-66) Lymphocytes % 27 % (24-48) Monocytes % 15 % (0-10) Eosinophils % 1 % (0-5) Basophils % 1 % (0-3) Platelet Estimate Adequate (ADEQUATE) Prothrombin Time 14.0 SEC (11.7-14.0) Prothromb Time International Ratio 1.1 (0.8-1.1) Activated Partial Thromboplast Time 30 SEC (24-38) Sodium Level 140 mmol/L (136-145) Potassium Level 3.9 mmol/L (3.5-5.1) Chloride Level 103 mmol/L (98-107) Carbon Dioxide Level 29 mmol/L (21-32) Anion Gap 8 (6-14) Blood Urea Nitrogen 12 mg/dL (7-20) Creatinine 1.0 mg/dL (0.6-1.0) Estimated GFR (Cockcroft-Gault) 52.6 BUN/Creatinine Ratio 12 (6-20) Glucose Level 100 mg/dL (70-99) Lactic Acid Level 3.0 mmol/L (0.4-2.0) 2.0 mmol/L (0.4-2.0) Calcium Level 9.0 mg/dL (8.5-10.1) Total Bilirubin 0.2 mg/dL (0.2-1.0) Aspartate Amino Transf (AST/SGOT) 37 U/L (15-37) Alanine Aminotransferase (ALT/SGPT) 31 U/L (14-59) Alkaline Phosphatase 89 U/L (46-116) FW-Ogm-T-Type Natriuretic Peptide 156 pg/mL (0-449) Total Protein 6.8 g/dL (6.4-8.2) Albumin 2.9 g/dL (3.4-5.0) Albumin/Globulin Ratio 0.7 (1.0-1.7) Laboratory Tests Test 03/11/19 11:10 03/11/19 14:55 White Blood Count 6.3 x10^3/uL (4.0-11.0) Red Blood Count 4.61 x10^6/uL (3.50-5.40) Hemoglobin 14.1 g/dL (12.0-15.5) Hematocrit 42.0 % (36.0-47.0) Mean Corpuscular Volume 91 fL (79-100) Mean Corpuscular Hemoglobin 31 pg (25-35) Mean Corpuscular Hemoglobin Concent 34 g/dL (31-37) Red Cell Distribution Width 14.5 % (11.5-14.5) Platelet Count 194 x10^3/uL (140-400) Neutrophils (%) (Auto) 61 % (31-73) Lymphocytes (%) (Auto) 17 % (24-48) Monocytes (%) (Auto) 20 % (0-9) Eosinophils (%) (Auto) 1 % (0-3) Basophils (%) (Auto) 1 % (0-3) Neutrophils # (Auto) 3.8 x10^3/uL (1.8-7.7) Lymphocytes # (Auto) 1.1 x10^3/uL (1.0-4.8) Monocytes # (Auto) 1.3 x10^3/uL (0.0-1.1) Eosinophils # (Auto) 0.1 x10^3/uL (0.0-0.7) Basophils # (Auto) 0.1 x10^3/uL (0.0-0.2) Segmented Neutrophils % 56 % (35-66) Lymphocytes % 27 % (24-48) Monocytes % 15 % (0-10) Eosinophils % 1 % (0-5) Basophils % 1 % (0-3) Platelet Estimate Adequate (ADEQUATE) Prothrombin Time 14.0 SEC (11.7-14.0) Prothromb Time International Ratio 1.1 (0.8-1.1) Activated Partial Thromboplast Time 30 SEC (24-38) Sodium Level 140 mmol/L (136-145) Potassium Level 3.9 mmol/L (3.5-5.1) Chloride Level 103 mmol/L (98-107) Carbon Dioxide Level 29 mmol/L (21-32) Anion Gap 8 (6-14) Blood Urea Nitrogen 12 mg/dL (7-20) Creatinine 1.0 mg/dL (0.6-1.0) Estimated GFR (Cockcroft-Gault) 52.6 BUN/Creatinine Ratio 12 (6-20) Glucose Level 100 mg/dL (70-99) Lactic Acid Level 3.0 mmol/L (0.4-2.0) 2.0 mmol/L (0.4-2.0) Calcium Level 9.0 mg/dL (8.5-10.1) Total Bilirubin 0.2 mg/dL (0.2-1.0) Aspartate Amino Transf (AST/SGOT) 37 U/L (15-37) Alanine Aminotransferase (ALT/SGPT) 31 U/L (14-59) Alkaline Phosphatase 89 U/L (46-116) CL-Jpu-M-Type Natriuretic Peptide 156 pg/mL (0-449) Total Protein 6.8 g/dL (6.4-8.2) Albumin 2.9 g/dL (3.4-5.0) Albumin/Globulin Ratio 0.7 (1.0-1.7) Medications Active Scripts Medications Dose Route/Sig Max Daily Dose Days Date Category Docusate Sodium 100 Mg Capsule 1 Cap PO HS 30 03/11/19 Reported Tylenol (Acetaminophen) 325 Mg Tablet 2 Tab PO PRN Q6HRS PRN 08/18/17 Reported Hydrocodone-Apap 5-325 (Hydrocodone Bit/Acetaminophen) 1 Each Tablet 1 Tab PO PRN Q6HRS PRN 05/10/17 Reported Impression . IMPRESSION: 1. Abnormal x-ray revealing mostly atelectasis with a right-sided small effusion. 2. Bilateral lower extremity cellulitis. 3. Bilateral foot wounds. 4. Lactic acidosis. 5. Possible pneumonia. janiya. Plan . PLAN: 1. Continue current antibiotics per Infectious Disease service. 2. We will follow clinical course and make adjustments depending on the patient's clinical response. 3. Repeat lactic acid ROEL León MD Mar 12, 2019 08:27
--- NOTE | 2019-03-12 10:04 | PDOC ---
Infectious Disease Note Subjective Subjective Doing ok, No F/C/S/N/V/D/SOA/rash Feet ok as long as not moved Vital Sign Vital Signs Vital Signs Date Time Temp Pulse Resp B/P (MAP) Pulse Ox O2 Delivery O2 Flow Rate FiO2 03/12/19 07:00 97.9 63 18 113/83 (93) 93 Room Air 97.9 Physical Exam PHYSICAL EXAM CONSTITUTIONAL: She is alert. She is cooperative. She is in no acute distress. HEENT: She has normal conjunctivae. Oral cavity and pharynx is clear. NECK: Supple, no JVD. LUNGS: Decreased in the bases. HEART: S1, S2. ABDOMEN: Soft, nontender, no guarding or rebound. EXTREMITIES: Without clubbing, cyanosis bilaterally. She has improved erythema from the tips of her toes to the third of her tibia. She has 2 + pitting edema and her skin is wrinkling. She does have tinea. She has ruptured bulla lesions with erythematous bases and serous drainage. There is no gross odor. There is tenderness still and some slight warmth. She does have pulses in her dorsalis area. SKIN: Otherwise, warm without signs of rash. NEUROLOGIC: She is nonfocal, but forgetful. PSYCHIATRIC: Affect is appropriate. Labs Lab Laboratory Tests Test 03/11/19 11:10 03/11/19 14:55 White Blood Count 6.3 x10^3/uL (4.0-11.0) Red Blood Count 4.61 x10^6/uL (3.50-5.40) Hemoglobin 14.1 g/dL (12.0-15.5) Hematocrit 42.0 % (36.0-47.0) Mean Corpuscular Volume 91 fL (79-100) Mean Corpuscular Hemoglobin 31 pg (25-35) Mean Corpuscular Hemoglobin Concent 34 g/dL (31-37) Red Cell Distribution Width 14.5 % (11.5-14.5) Platelet Count 194 x10^3/uL (140-400) Neutrophils (%) (Auto) 61 % (31-73) Lymphocytes (%) (Auto) 17 % (24-48) Monocytes (%) (Auto) 20 % (0-9) Eosinophils (%) (Auto) 1 % (0-3) Basophils (%) (Auto) 1 % (0-3) Neutrophils # (Auto) 3.8 x10^3/uL (1.8-7.7) Lymphocytes # (Auto) 1.1 x10^3/uL (1.0-4.8) Monocytes # (Auto) 1.3 x10^3/uL (0.0-1.1) Eosinophils # (Auto) 0.1 x10^3/uL (0.0-0.7) Basophils # (Auto) 0.1 x10^3/uL (0.0-0.2) Segmented Neutrophils % 56 % (35-66) Lymphocytes % 27 % (24-48) Monocytes % 15 % (0-10) Eosinophils % 1 % (0-5) Basophils % 1 % (0-3) Platelet Estimate Adequate (ADEQUATE) Prothrombin Time 14.0 SEC (11.7-14.0) Prothromb Time International Ratio 1.1 (0.8-1.1) Activated Partial Thromboplast Time 30 SEC (24-38) Sodium Level 140 mmol/L (136-145) Potassium Level 3.9 mmol/L (3.5-5.1) Chloride Level 103 mmol/L (98-107) Carbon Dioxide Level 29 mmol/L (21-32) Anion Gap 8 (6-14) Blood Urea Nitrogen 12 mg/dL (7-20) Creatinine 1.0 mg/dL (0.6-1.0) Estimated GFR (Cockcroft-Gault) 52.6 BUN/Creatinine Ratio 12 (6-20) Glucose Level 100 mg/dL (70-99) Lactic Acid Level 3.0 mmol/L (0.4-2.0) 2.0 mmol/L (0.4-2.0) Calcium Level 9.0 mg/dL (8.5-10.1) Total Bilirubin 0.2 mg/dL (0.2-1.0) Aspartate Amino Transf (AST/SGOT) 37 U/L (15-37) Alanine Aminotransferase (ALT/SGPT) 31 U/L (14-59) Alkaline Phosphatase 89 U/L (46-116) DS-Mes-A-Type Natriuretic Peptide 156 pg/mL (0-449) Total Protein 6.8 g/dL (6.4-8.2) Albumin 2.9 g/dL (3.4-5.0) Albumin/Globulin Ratio 0.7 (1.0-1.7) Objective Assessment Fabian LE celllulitis - improved Bilat foot wounds Lactic acidosis - better Tinea LE edema Recent Rocephin/keflex/diflucan Plan Plan of Care Given recent abx will dosed Meropenem/Micafungin and Daptomycin 03/12 F/u labs and cults Wound care per primary and wound care team JOSE L FREEMAN MD Mar 12, 2019 10:04
[2019-03-12 11:00] VITALS: BP 112/76
--- NOTE | 2019-03-12 12:48 | PDOC ---
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 Fabian LE celllulitis - improved Bilat foot wounds Lactic acidosis - better Tinea LE edema History of Present Illness History of Present Illness Patient seen and examined She seems angry but this seems to be her baseline suspect this is related to her dementia Vitals/I&O Vitals/I&O: Vital Signs Date Time Temp Pulse Resp B/P (MAP) Pulse Ox O2 Delivery O2 Flow Rate FiO2 03/12/19 11:00 69 17 112/76 (88) 96 Room Air 03/12/19 07:00 97.9 97.9 I & O 03/11/19 03/11/19 03/12/19 15:00 23:00 07:00 Intake Total 260 ml 50 ml Balance 260 ml 50 ml Physical Exam Physical Exam: CONSTITUTIONAL: Pleasantly confused but HEENT: She has normal conjunctivae. Oral cavity and pharynx is clear. NECK: Supple, no JVD. LUNGS: Decreased in the bases. HEART: S1, S2. ABDOMEN: Soft, nontender, no guarding or rebound. EXTREMITIES: Without clubbing, cyanosis bilaterally. She has improved erythema from the tips of her toes to the third of her tibia. She has 2 + pitting edema and her skin is wrinkling. She does have tinea. She has ruptured bulla lesions with erythematous bases and serous drainage. There is no gross odor. There is tenderness still and some slight warmth. She does have pulses in her dorsalis area. SKIN: Otherwise, warm without signs of rash. NEUROLOGIC: She is nonfocal, but forgetful. PSYCHIATRIC: Affect is appropriate. 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 Medications: Current Medications Medications (Trade) Dose Ordered Sig/Taty Route PRN Reason Start Time Stop Time Status Last Admin Dose Admin Daptomycin 420 mg/ Sodium Chloride 50 ml @ 100 mls/hr Q24H IV 03/11/19 15:30 03/11/19 15:45 Micafungin Sodium 100 mg/Dextrose 100 ml @ 100 mls/hr Q24H IV 03/11/19 15:00 03/11/19 16:22 Meropenem 500 mg/ Sodium Chloride 50 ml @ 100 mls/hr Q8HRS IV 03/11/19 15:00 03/12/19 05:58 Acetaminophen (Tylenol) 650 mg PRN Q6HRS PRN PO MILD PAIN / TEMP 03/11/19 20:00 03/12/19 09:33 MAYELIN GONGORA III DO Mar 12, 2019 12:48
[2019-03-12] MEDS: LACTOBACILLUS RHAMNOSUS GG 1 CAPSULE. PO SCH ×2 (14:00→21:00)
[2019-03-12] MEDS: MICAFUNGIN 100 MG in IV DEXTROSE 5% 100ML 100 ML IV SCH (14:48)
--- NOTE | 2019-03-12 14:48 | NUR ---
NICK consulted for SNF. Chart reviewed and NICK confirmed with Lucie at [facility], Pt is LTC resident, phone: [phone], fax: [phone]. NICK will continue to follow.
[2019-03-12 15:00] VITALS: BP 113/79
[2019-03-12] MEDS: DAPTOmycin (GENERIC) IVPB 420 MG in IV NORMAL SALINE 50ML 50 ML IV SCH (16:49)
[2019-03-12 23:00] VITALS: BP 105/49
[2019-03-13] MEDS: MEROPENEM 500 MG in IV NORMAL SALINE 50ML 50 ML IV SCH ×3 (06:00→23:10)
[2019-03-13] MEDS: ACETAMINOPHEN 325 MG TABLET. PO PRN (06:18)
[2019-03-13 07:00] VITALS: BP 130/63
[2019-03-13] MEDS: LACTOBACILLUS RHAMNOSUS GG 1 CAPSULE. PO SCH ×2 (08:07→19:52)
--- NOTE | 2019-03-13 09:30 | PDOC ---
PULMONARY PROGRESS NOTES Subjective PT NOT MORE SOA Vitals Vital Signs Date Time Temp Pulse Resp B/P (MAP) Pulse Ox O2 Delivery O2 Flow Rate FiO2 03/13/19 07:00 98.2 75 18 130/63 (85) 95 Room Air 98.2 ROS: No Nausea, No Chest Pain, No Abdominal Pain, No Increase Cough General: Alert Lungs: Clear Cardiovascular: S1, S2 Abdomen: Soft Neuro Exam: Alert Extremities: No Edema Skin: Warm Labs Laboratory Tests Test 03/11/19 11:10 03/11/19 14:55 White Blood Count 6.3 x10^3/uL (4.0-11.0) Red Blood Count 4.61 x10^6/uL (3.50-5.40) Hemoglobin 14.1 g/dL (12.0-15.5) Hematocrit 42.0 % (36.0-47.0) Mean Corpuscular Volume 91 fL (79-100) Mean Corpuscular Hemoglobin 31 pg (25-35) Mean Corpuscular Hemoglobin Concent 34 g/dL (31-37) Red Cell Distribution Width 14.5 % (11.5-14.5) Platelet Count 194 x10^3/uL (140-400) Neutrophils (%) (Auto) 61 % (31-73) Lymphocytes (%) (Auto) 17 % (24-48) Monocytes (%) (Auto) 20 % (0-9) Eosinophils (%) (Auto) 1 % (0-3) Basophils (%) (Auto) 1 % (0-3) Neutrophils # (Auto) 3.8 x10^3/uL (1.8-7.7) Lymphocytes # (Auto) 1.1 x10^3/uL (1.0-4.8) Monocytes # (Auto) 1.3 x10^3/uL (0.0-1.1) Eosinophils # (Auto) 0.1 x10^3/uL (0.0-0.7) Basophils # (Auto) 0.1 x10^3/uL (0.0-0.2) Segmented Neutrophils % 56 % (35-66) Lymphocytes % 27 % (24-48) Monocytes % 15 % (0-10) Eosinophils % 1 % (0-5) Basophils % 1 % (0-3) Platelet Estimate Adequate (ADEQUATE) Prothrombin Time 14.0 SEC (11.7-14.0) Prothromb Time International Ratio 1.1 (0.8-1.1) Activated Partial Thromboplast Time 30 SEC (24-38) Sodium Level 140 mmol/L (136-145) Potassium Level 3.9 mmol/L (3.5-5.1) Chloride Level 103 mmol/L (98-107) Carbon Dioxide Level 29 mmol/L (21-32) Anion Gap 8 (6-14) Blood Urea Nitrogen 12 mg/dL (7-20) Creatinine 1.0 mg/dL (0.6-1.0) Estimated GFR (Cockcroft-Gault) 52.6 BUN/Creatinine Ratio 12 (6-20) Glucose Level 100 mg/dL (70-99) Lactic Acid Level 3.0 mmol/L (0.4-2.0) 2.0 mmol/L (0.4-2.0) Calcium Level 9.0 mg/dL (8.5-10.1) Total Bilirubin 0.2 mg/dL (0.2-1.0) Aspartate Amino Transf (AST/SGOT) 37 U/L (15-37) Alanine Aminotransferase (ALT/SGPT) 31 U/L (14-59) Alkaline Phosphatase 89 U/L (46-116) RU-Fmw-A-Type Natriuretic Peptide 156 pg/mL (0-449) Total Protein 6.8 g/dL (6.4-8.2) Albumin 2.9 g/dL (3.4-5.0) Albumin/Globulin Ratio 0.7 (1.0-1.7) Medications Active Scripts Medications Dose Route/Sig Max Daily Dose Days Date Category Docusate Sodium 100 Mg Capsule 1 Cap PO HS 30 03/11/19 Reported Tylenol (Acetaminophen) 325 Mg Tablet 2 Tab PO PRN Q6HRS PRN 08/18/17 Reported Hydrocodone-Apap 5-325 (Hydrocodone Bit/Acetaminophen) 1 Each Tablet 1 Tab PO PRN Q6HRS PRN 05/10/17 Reported Impression . IMPRESSION: 1. Abnormal x-ray revealing mostly atelectasis with a right-sided small effusion. 2. Bilateral lower extremity cellulitis. 3. Bilateral foot wounds. 4. Lactic acidosis. 5. Possible pneumonia. Plan . ANTIBX PER ID RESP STATUS IS COMPENSATED ROEL JONES MD Mar 13, 2019 09:30
--- NOTE | 2019-03-13 10:57 | PDOC ---
Infectious Disease Note Subjective Subjective Doing ok, No F/C/S/N/V/D/SOA/rash Feet ok as long as not moved Vital Sign Vital Signs Vital Signs Date Time Temp Pulse Resp B/P (MAP) Pulse Ox O2 Delivery O2 Flow Rate FiO2 03/13/19 07:00 98.2 75 18 130/63 (85) 95 Room Air 98.2 Physical Exam PHYSICAL EXAM CONSTITUTIONAL: Pleasantly confused but NAD and coop HEENT: She has normal conjunctivae. Oral cavity and pharynx is clear. Left moravian chronic wound NECK: Supple, no JVD. LUNGS: Decreased in the bases. HEART: S1, S2. ABDOMEN: Soft, nontender, no guarding or rebound. EXTREMITIES: Without clubbing, cyanosis bilaterally. She has improved erythema from the tips of her toes to the third of her tibia. She has 2 + pitting edema and her skin is wrinkling. She does have tinea. She has ruptured bulla lesions with erythematous bases and serous drainage. There is no gross odor. There is tenderness still and some slight warmth. She does have pulses in her dorsalis area. SKIN: Otherwise, warm without signs of rash. NEUROLOGIC: She is nonfocal, but forgetful. PSYCHIATRIC: Affect is appropriate. Labs Micro Microbiology 03/11/19 Blood Culture - Preliminary, Resulted NO GROWTH AFTER 1 DAY Objective Assessment Fabian LE celllulitis - improving Bilat foot wounds Lactic acidosis - better Tinea LE edema Recent Rocephin/keflex/diflucan Plan Plan of Care Given recent abx will dosed Meropenem/Micafungin and Daptomycin 03/11 F/u labs and cults Wound care per primary and wound care team JOSE L FREEMAN MD Mar 13, 2019 10:57
[2019-03-13 11:00] VITALS: BP 124/69
--- NOTE | 2019-03-13 11:41 | PDOC ---
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 Fabian LE celllulitis - improved Bilat foot wounds Lactic acidosis - better Tinea LE edema History of Present Illness History of Present Illness Patient seen and examined She seems angry but this seems to be her baseline suspect this is related to her dementia 03/13/19 Pt seen and examined by me ARMENTA RN Chart reviewed Vitals/I&O Vitals/I&O: Vital Signs Date Time Temp Pulse Resp B/P (MAP) Pulse Ox O2 Delivery O2 Flow Rate FiO2 03/13/19 11:00 98.1 64 16 124/69 (87) 99 Room Air 98.1 I & O 03/12/19 03/12/19 03/13/19 15:00 23:00 07:00 Intake Total 120 ml Balance 120 ml Physical Exam Physical Exam: CONSTITUTIONAL: Pleasantly confused but NAD and coop HEENT: She has normal conjunctivae. Oral cavity and pharynx is clear. Left anglican chronic wound NECK: Supple, no JVD. LUNGS: Decreased in the bases. HEART: S1, S2. ABDOMEN: Soft, nontender, no guarding or rebound. EXTREMITIES: Without clubbing, cyanosis bilaterally. She has improved erythema from the tips of her toes to the third of her tibia. She has 2 + pitting edema and her skin is wrinkling. She does have tinea. She has ruptured bulla lesions with erythematous bases and serous drainage. There is no gross odor. There is tenderness still and some slight warmth. She does have pulses in her dorsalis area. SKIN: Otherwise, warm without signs of rash. NEUROLOGIC: She is nonfocal, but forgetful. PSYCHIATRIC: Affect is appropriate. General: Alert, No acute distress, Other (sleeping) Heart: Regular rate Lungs: Clear, Other Review of Systems Review of Systems: (-) CP, SOB Assessment and Plan Assessmemt and Plan Problems Medical Problems: (1) Bilateral lower leg cellulitis Status: Acute Plan: Continue IV abx wound care dvt ppx labs home meds PT/OT Full code Hope to d/c to SNU in AM Comment Review of Relevant I have reviewed the following items shagufta (where applicable) has been applied. MAYELIN GONGORA III, DO Mar 13, 2019 11:41
[2019-03-13 15:00] VITALS: BP 144/73
--- NOTE | 2019-03-13 15:20 | NUR ---
NICK faxed updates to [facility].
[2019-03-13] MEDS: MICAFUNGIN 100 MG in IV DEXTROSE 5% 100ML 100 ML IV SCH (15:37)
[2019-03-13] MEDS: DAPTOmycin (GENERIC) IVPB 420 MG in IV NORMAL SALINE 50ML 50 ML IV SCH (18:00)
[2019-03-13 19:00] VITALS: BP 135/63
[2019-03-13 23:00] VITALS: BP 115/63
[2019-03-14 03:10] VITALS: BP 139/62
[2019-03-14] MEDS: MEROPENEM 500 MG in IV NORMAL SALINE 50ML 50 ML IV SCH ×3 (05:22→22:43)
[2019-03-14 07:59] VITALS: BP 92/59
--- NOTE | 2019-03-14 08:16 | PDOC ---
PULMONARY PROGRESS NOTES Subjective is tired, sob better, has occ cough Vitals Vital Signs Date Time Temp Pulse Resp B/P (MAP) Pulse Ox O2 Delivery O2 Flow Rate FiO2 03/14/19 03:10 99.6 70 18 139/62 (87) 96 Room Air 99.6 ROS: No Nausea, No Chest Pain, No Abdominal Pain, No Increase Cough General: Alert Lungs: Clear Cardiovascular: S1, S2 Abdomen: Soft Neuro Exam: Alert Extremities: Other (edema) Skin: Warm Medications Active Scripts Medications Dose Route/Sig Max Daily Dose Days Date Category Docusate Sodium 100 Mg Capsule 1 Cap PO HS 30 03/11/19 Reported Tylenol (Acetaminophen) 325 Mg Tablet 2 Tab PO PRN Q6HRS PRN 08/18/17 Reported Hydrocodone-Apap 5-325 (Hydrocodone Bit/Acetaminophen) 1 Each Tablet 1 Tab PO PRN Q6HRS PRN 05/10/17 Reported Impression . IMPRESSION: 1. Abnormal x-ray revealing mostly atelectasis with a right-sided small effusion. 2. Bilateral lower extremity cellulitis. 3. Bilateral foot wounds. 4. Lactic acidosis. 5. Possible pneumonia. Plan . ANTIBX PER ID, Meropenem, Micafungin and Daptomycin 03/11 RESP STATUS IS COMPENSATED discussed w pt LUANN JACOBSON MD Mar 14, 2019 08:16
[2019-03-14] MEDS: LACTOBACILLUS RHAMNOSUS GG 1 CAPSULE. PO SCH ×2 (09:33→21:04)
--- NOTE | 2019-03-14 10:36 | PDOC ---
Infectious Disease Note Subjective Subjective c/o pain in feet when touched No Fevers Vital Sign Vital Signs Vital Signs Date Time Temp Pulse Resp B/P (MAP) Pulse Ox O2 Delivery O2 Flow Rate FiO2 03/14/19 07:59 98.5 76 20 92/59 (70) 93 Room Air 98.5 Physical Exam PHYSICAL EXAM CONSTITUTIONAL: Propped up inbed, alert, eating HEENT: Oral cavity and pharynx is clear. Left baptism chronic wound NECK: Supple LUNGS: Clear anteriorly HEART: S1, S2. ABDOMEN: Soft, nontender EXTREMITIES: Without clubbing, cyanosis bilaterally. Lower legs and feet bandaged SKIN: Otherwise, warm without signs of rash. NEUROLOGIC: Alert, confused Labs Micro Microbiology 03/11/19 Blood Culture - Preliminary, Resulted NO GROWTH AFTER 2 DAYS Objective Assessment Fabian LE celllulitis - improving Bilat foot wounds Lactic acidosis - better Tinea LE edema Recent Rocephin/keflex/diflucan Plan Plan of Care Contniue Meropenem, Micafungin and Daptomycin 03/11 Probiotics BC neg so far Wound care per primary and wound care team Patient seen and examined. Chart reviewed in detail. Case discussed with DESIGN ENGINEERING TECHNICIAN. Agree with above plan in addition to below Patient is not ready to discharge to a SNF on 3 IV abx Re-evaluate in am, start narrowing to IVs qday and PO alternatives prior to discharge FÁTIMA TIMMONS APRN Mar 14, 2019 10:36 KIRILL ORTIZ MD Mar 14, 2019 18:38
--- NOTE | 2019-03-14 11:00 | PDOC ---
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 Fabian LE celllulitis - improved Bilat foot wounds Lactic acidosis - better Tinea LE edema History of Present Illness History of Present Illness Patient seen and examined She seems angry but this seems to be her baseline suspect this is related to her dementia 03/13/19 Pt seen and examined by me KATHI RN Chart reviewed 03/14 Pt seen and examined Pt resting comfortably DWRN Pt ok with DC plan Vitals/I&O Vitals/I&O: Vital Signs Date Time Temp Pulse Resp B/P (MAP) Pulse Ox O2 Delivery O2 Flow Rate FiO2 03/14/19 07:59 98.5 76 20 92/59 (70) 93 Room Air 98.5 I & O 03/13/19 03/13/19 03/14/19 15:00 23:00 07:00 Intake Total 240 ml 30 ml 100 ml Balance 240 ml 30 ml 100 ml Physical Exam Physical Exam: CONSTITUTIONAL: Propped up inbed, alert, eating HEENT: Oral cavity and pharynx is clear. Left anabaptist chronic wound NECK: Supple LUNGS: Clear anteriorly HEART: S1, S2. ABDOMEN: Soft, nontender EXTREMITIES: Without clubbing, cyanosis bilaterally. Lower legs and feet bandaged SKIN: Otherwise, warm without signs of rash. 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 MAYELIN GONGORA III DO Mar 14, 2019 11:00
[2019-03-14 11:35] VITALS: BP 87/57
[2019-03-14] MEDS: MICAFUNGIN 100 MG in IV DEXTROSE 5% 100ML 100 ML IV SCH (14:59)
[2019-03-14 15:59] VITALS: BP 112/60
[2019-03-14] MEDS: DAPTOmycin (GENERIC) IVPB 420 MG in IV NORMAL SALINE 50ML 50 ML IV SCH (17:02)
[2019-03-14] MEDS: ACETAMINOPHEN 325 MG TABLET. PO PRN (17:10)
[2019-03-14 19:00] VITALS: BP 121/55
[2019-03-15 03:00] VITALS: BP 123/78
[2019-03-15] MEDS: MEROPENEM 500 MG in IV NORMAL SALINE 50ML 50 ML IV SCH ×4 (05:42→22:22)
--- NOTE | 2019-03-15 07:44 | PDOC ---
PULMONARY PROGRESS NOTES Subjective is tired, denies sob, has occ cough Vitals Vital Signs Date Time Temp Pulse Resp B/P (MAP) Pulse Ox O2 Delivery O2 Flow Rate FiO2 03/15/19 03:00 98.0 66 18 123/78 (93) 93 Room Air 98.0 ROS: No Nausea, No Chest Pain, No Abdominal Pain, No Increase Cough General: Alert Lungs: Clear Cardiovascular: S1, S2 Abdomen: Soft, Non-tender Neuro Exam: Alert, Oriented Extremities: Other (edema) Skin: Warm Medications Active Scripts Medications Dose Route/Sig Max Daily Dose Days Date Category Docusate Sodium 100 Mg Capsule 1 Cap PO HS 30 03/11/19 Reported Tylenol (Acetaminophen) 325 Mg Tablet 2 Tab PO PRN Q6HRS PRN 08/18/17 Reported Hydrocodone-Apap 5-325 (Hydrocodone Bit/Acetaminophen) 1 Each Tablet 1 Tab PO PRN Q6HRS PRN 05/10/17 Reported Impression . IMPRESSION: 1. Abnormal x-ray revealing mostly atelectasis with a right-sided small effusion. 2. Bilateral lower extremity cellulitis. 3. Bilateral foot wounds. 4. Lactic acidosis. 5. Possible pneumonia. Plan . ANTIBX PER ID, Meropenem, Micafungin and Daptomycin 03/11 le cellulitis - slowing improving RESP STATUS IS COMPENSATED discussed w LUANN Duarte MD Mar 15, 2019 07:44
[2019-03-15 07:59] VITALS: BP 126/55
[2019-03-15] MEDS: LACTOBACILLUS RHAMNOSUS GG 1 CAPSULE. PO SCH ×2 (09:00→21:35)
--- NOTE | 2019-03-15 10:45 | PDOC ---
Infectious Disease Note Subjective Subjective c/o pain in feet when touched No Fevers Vital Sign Vital Signs Vital Signs Date Time Temp Pulse Resp B/P (MAP) Pulse Ox O2 Delivery O2 Flow Rate FiO2 03/15/19 07:59 98.6 71 18 126/55 (78) 93 Room Air 98.6 Physical Exam PHYSICAL EXAM GENERAL: Lying down, irritable, HEENT: Oral cavity and pharynx is clear. Left mu-ism chronic wound NECK: Supple LUNGS: Clear anteriorly HEART: S1, S2. ABDOMEN: Soft, nontender EXTREMITIES: Without clubbing, cyanosis bilaterally. Right foot ulcer dry, + redness and 1+ edema Left foot ulcer dry, less red and minimal edema. SKIN: Otherwise, warm without signs of rash. NEUROLOGIC: Alert, confused Labs Micro Microbiology 03/11/19 Blood Culture - Preliminary, Resulted NO GROWTH AFTER 3 DAYS Objective Assessment Fabian LE celllulitis - improving Bilat foot wounds Lactic acidosis - better Tinea LE edema Recent Rocephin/keflex/diflucan Plan Plan of Care Continue Meropenem, Micafungin and Daptomycin 03/11 - slowing improving Probiotics BC neg so far Wound care per primary and wound care team labs in am D/w nursing Patient seen and examined. Chart reviewed in detail. Case discussed with SIGN MAKER. Agree with above plan. FÁTIMA TIMMONS APRN Mar 15, 2019 10:45 KIRILL ORTIZ MD Mar 15, 2019 18:13
--- NOTE | 2019-03-15 11:47 | PDOC ---
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 Fabian LE celllulitis - improved Bilat foot wounds Lactic acidosis - better Tinea LE edema History of Present Illness History of Present Illness Patient seen and examined She seems angry but this seems to be her baseline suspect this is related to her dementia 03/13/19 Pt seen and examined by me KATHI RN Chart reviewed 03/14 Pt seen and examined Pt resting comfortably DWRN Pt ok with DC plan 03/15/19 Pt seen and examined Pt resting comfortably DW RN Chart reviewed Vitals/I&O Vitals/I&O: Vital Signs Date Time Temp Pulse Resp B/P (MAP) Pulse Ox O2 Delivery O2 Flow Rate FiO2 03/15/19 07:59 98.6 71 18 126/55 (78) 93 Room Air 98.6 I & O 03/14/19 03/14/19 03/15/19 15:00 23:00 07:00 Intake Total 0 ml 0 ml Balance 0 ml 0 ml Physical Exam Physical Exam: GENERAL: Lying down, irritable, HEENT: Oral cavity and pharynx is clear. Left baptism chronic wound NECK: Supple LUNGS: Clear anteriorly HEART: S1, S2. ABDOMEN: Soft, nontender EXTREMITIES: Without clubbing, cyanosis bilaterally. Right foot ulcer dry, + redness and 1+ edema Left foot ulcer dry, less red and minimal edema. SKIN: Otherwise, warm without signs of rash. NEUROLOGIC: Alert, confused General: Alert, No acute distress, Other (sleeping) Heart: Regular rate, Normal S1, Normal S2 Lungs: Clear Abdomen: Normal bowel sounds, No tenderness Extremities: No clubbing, No cyanosis Skin: No rashes, No breakdown Review of Systems Review of Systems: (-) CP, SOB, fevers, chills Assessment and Plan Assessmemt and Plan Problems Medical Problems: (1) Bilateral lower leg cellulitis Status: Acute Plan: Continue IV abx Appreciate ID recs home meds dvt ppx PT/OT full code Comment Review of Relevant I have reviewed the following items shagufta (where applicable) has been applied. MAYELIN GONGORA III DO Mar 15, 2019 11:47
[2019-03-15] MEDS: MICAFUNGIN 100 MG in IV DEXTROSE 5% 100ML 100 ML IV SCH (15:00)
[2019-03-15] MEDS: DAPTOmycin (GENERIC) IVPB 420 MG in IV NORMAL SALINE 50ML 50 ML IV SCH (16:54)
[2019-03-15 19:00] VITALS: BP 117/43
[2019-03-15 23:03] VITALS: BP 106/39
[2019-03-16 03:10] VITALS: BP 106/46
[2019-03-16 03:11] VITALS: BP 106/46
[2019-03-16] MEDS: MEROPENEM 500 MG in IV NORMAL SALINE 50ML 50 ML IV SCH ×3 (06:07→21:54)
[2019-03-16 07:00] VITALS: BP 112/44
[2019-03-16] MEDS: LACTOBACILLUS RHAMNOSUS GG 1 CAPSULE. PO SCH ×2 (08:27→21:54)
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
--- NOTE | 2019-03-16 10:28 | PDOC ---
PULMONARY PROGRESS NOTES Subjective is tired, denies sob, has occ cough Vitals Vital Signs Date Time Temp Pulse Resp B/P (MAP) Pulse Ox O2 Delivery O2 Flow Rate FiO2 03/16/19 07:00 97.8 79 16 112/44 (66) 92 Room Air 97.8 ROS: No Nausea, No Chest Pain, No Abdominal Pain, No Increase Cough General: Alert Lungs: Clear Cardiovascular: S1, S2 Abdomen: Soft, Non-tender Neuro Exam: Alert, Oriented Extremities: Other (edema) Skin: Warm Medications Active Scripts Medications Dose Route/Sig Max Daily Dose Days Date Category Docusate Sodium 100 Mg Capsule 1 Cap PO HS 30 03/11/19 Reported Tylenol (Acetaminophen) 325 Mg Tablet 2 Tab PO PRN Q6HRS PRN 08/18/17 Reported Hydrocodone-Apap 5-325 (Hydrocodone Bit/Acetaminophen) 1 Each Tablet 1 Tab PO PRN Q6HRS PRN 05/10/17 Reported Impression . IMPRESSION: 1. Abnormal x-ray revealing mostly atelectasis with a right-sided small effusion. 2. Bilateral lower extremity cellulitis. 3. Bilateral foot wounds. 4. Lactic acidosis. 5. NO pneumonia. Plan . ANTIBX PER ID, Meropenem, Micafungin and Daptomycin 03/11 le cellulitis - slowing improving RESP STATUS IS COMPENSATED D/W DR GONGORA. NOT MUCH TO ADD WILL SIGN OFF discussed w DEENA Linares MD Mar 16, 2019 10:28
[2019-03-16 10:39] VITALS: BP 115/48
--- NOTE | 2019-03-16 11:23 | NUR ---
SW following pt. Per RN, pt will have surgery consult. [facility] is attempting to get auth for SNU but RN reported pt is bed rest and they were not able to get Pt out of bed with 2 person max assist on Saturday. Pt does not seem appropriate for PT at this time. Notified Toma at [facility] regarding this. NICK will continue to follow.
--- NOTE | 2019-03-16 12:02 | PDOC ---
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 Pt is irritable and suspicious of staff. Chart reviewed. Saw and examined foot with infectious disease, necrotic on top of foot worse on right. Vitals/I&O Vitals/I&O: Vital Signs Date Time Temp Pulse Resp B/P (MAP) Pulse Ox O2 Delivery O2 Flow Rate FiO2 03/16/19 10:39 97.8 80 16 115/48 (70) 92 Room Air 97.8 I & O 03/15/19 03/15/19 03/16/19 15:00 23:00 07:00 Intake Total 120 ml 100 ml Balance 120 ml 100 ml Physical Exam Physical Exam: HEENT: Nose midline, no scleral icterus. General: No acute distress, Other (Irritable ) Heart: Other (No cardiac heave appreciated. Distant heart sounds on ascultation. ) Lungs: Clear, Other (No respiratory distress) Abdomen: Normal bowel sounds, Soft, No tenderness Extremities: No clubbing, No cyanosis, Other (Bilateral wounds on the top feet, worse on the right. The right wound is necrotic. ) Skin: Other (Necrotic wound on top of right foot. Wound on top of left foot. 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 MAYELIN GONGORA III, DO Mar 16, 2019 12:02
[2019-03-16 15:00] VITALS: BP 112/48
[2019-03-16] MEDS: MICAFUNGIN 100 MG in IV DEXTROSE 5% 100ML 100 ML IV SCH (15:24)
[2019-03-16] MEDS: DAPTOmycin (GENERIC) IVPB 420 MG in IV NORMAL SALINE 50ML 50 ML IV SCH (16:00)
[2019-03-16 19:00] VITALS: BP 124/74
[2019-03-17] VITALS (8 sets, daily range): BP systolic 65–136; BP diastolic 42–75
[2019-03-17] MEDS: MEROPENEM 500 MG in IV NORMAL SALINE 50ML 50 ML IV SCH ×3 (05:42→21:30)
--- NOTE | 2019-03-17 08:51 | PDOC2 ---
CONSULT Date of Consult Date of Consult DATE: 03/17/19 TIME: 08:47 Reason for Consult Reason for Consult: Bilateral foot wounds Referring Physician Referring Physician: Jolie Identification/Chief Complaint Chief Complaint Right foot pain History of Present Illness Reason for Visit: Patient is an 88-year-old female admitted for medical conditions who was noted to have darkening appearance over a wound on the dorsum of her right foot. She tells me that her foot is been more sore, she is not a reliable strain secondary to her baseline mental status. Past Medical History Cardiovascular: No pertinent hx Pulmonary: No pertinent hx CENTRAL NERVOUS SYSTEM: Dementia GI: No pertinent hx Heme/Onc: No pertinent hx Hepatobiliary: No pertinent hx Psych: No pertinent hx Musculoskeletal: low back pain, Osteoarthritis Rheumatologic: No pertinent hx Infectious disease: No pertinent hx Renal/: Urinary Incontinence Endocrine: No pertinent hx Past Surgical History Past Surgical History: Total hip replacement, Total knee replacement Family History Family History: Family History Unknown Social History ALCOHOL: other Drugs: None Lives: [place] Current Problem List Problem List Problems Medical Problems: (1) Bilateral lower leg cellulitis Status: Acute Current Medications Current Medications Current Medications Cefazolin Sodium/ Dextrose 50 ml @ 100 mls/hr 1X ONCE IV Last administered on 03/11/19at 12:19; Start 03/11/19 at 11:45; Stop 03/11/19 at 12:14; Status DC Vancomycin HCl 250 ml @ 250 mls/hr 1X ONCE IV ; Start 03/11/19 at 11:45; Stop 03/11/19 at 12:44; Status DC Daptomycin 420 mg/ Sodium Chloride 50 ml @ 100 mls/hr Q24H IV Last administered on 03/16/19at 16:00; Start 03/11/19 at 15:30 Micafungin Sodium 100 mg/Dextrose 100 ml @ 100 mls/hr Q24H IV Last administered on 03/16/19at 15:24; Start 03/11/19 at 15:00 Meropenem 500 mg/ Sodium Chloride 50 ml @ 100 mls/hr Q8HRS IV Last administered on 03/17/19at 05:42; Start 03/11/19 at 15:00 Acetaminophen (Tylenol) 650 mg PRN Q6HRS PRN PO MILD PAIN / TEMP Last administered on 03/14/19at 17:10; Start 03/11/19 at 20:00 Lactobacillus Rhamnosus (Culturelle) 1 cap BID PO Last administered on 03/16/19at 21:54; Start 03/12/19 at 14:00 Active Scripts Active Reported Docusate Sodium 100 Mg Capsule 1 Cap PO HS 30 Days Tylenol (Acetaminophen) 325 Mg Tablet 2 Tab PO PRN Q6HRS PRN Hydrocodone-Apap 5-325 (Hydrocodone Bit/Acetaminophen) 1 Each Tablet 1 Tab PO PRN Q6HRS PRN Allergies Allergies: Coded Allergies: No Known Drug Allergies (Unverified , 09/16/14) ROS Review of System Unreliable secondary to patient's confusion Physical Exam General: Alert, No acute distress HEENT: Atraumatic, EOMI Lungs: Other (respirations are unlabored with symmetric chest rise) Heart: Regular rate Abdomen: Soft, No tenderness Extremities: No edema, Other (we Speed's Pulses) Neuro: Normal speech, Strength at 5/5 X4 ext, Sensation intact Psych/Mental Status: Mood NL MUSCULOSKELETAL: Other (examination of her bilateral feet reveals approximately a 7 cm diameter area with dark eschar covering it and a small amount of purulent debris at the base of this wound. It is superficial. There is a mild amount of surrounding cellulitis.) Vitals VITALS Vital Signs Date Time Temp Pulse Resp B/P (MAP) Pulse Ox O2 Delivery O2 Flow Rate FiO2 03/17/19 07:00 98.5 62 20 136/68 (90) 96 Room Air 98.5 Images Images Imaging and labs reviewed Assessment/Plan Assessment/Plan Given her foot wound, I would recommend that we proceed with debridement and likely wound VAC application. We will plan on doing this at 11:30 today. ELINA DIANE II, MD Mar 17, 2019 08:51
[2019-03-17] MEDS: LACTOBACILLUS RHAMNOSUS GG 1 CAPSULE. PO SCH ×2 (09:00→21:00)
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
--- NOTE | 2019-03-17 09:57 | PDOC ---
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 Pt is irritable and suspicious of staff. Chart reviewed. Saw and examined foot with infectious disease, necrotic on top of foot worse on right. 03/17/19 Pt seen and examined by me. Pt irritable and angry at staff Resting comfortably Chart reviewed DW RN Vitals/I&O Vitals/I&O: Vital Signs Date Time Temp Pulse Resp B/P (MAP) Pulse Ox O2 Delivery O2 Flow Rate FiO2 03/17/19 07:00 98.5 62 20 136/68 (90) 96 Room Air 98.5 I & O 03/16/19 03/16/19 03/17/19 15:00 23:00 07:00 Intake Total 650 ml 100 ml 0 ml Balance 650 ml 100 ml 0 ml Physical Exam Physical Exam: GENERAL: Lying down, irritable, HEENT: Oral cavity and pharynx is clear. Left islam chronic wound NECK: Supple LUNGS: Clear anteriorly HEART: S1, S2. ABDOMEN: Soft, nontender EXTREMITIES: Without clubbing, cyanosis bilaterally. ,left foot with some redness, not bad, rt foot with necrotic ulcer with yellow discharge Left foot ulcer dry, less red and minimal edema. SKIN: Otherwise, warm without signs of rash. NEUROLOGIC: Alert, confused General: Alert, No acute distress Heart: Regular rate Lungs: Clear, Other (No respiratory distress) Abdomen: Soft, No tenderness Extremities: No edema, Other (we Speed's Pulses) Skin: No rashes, Other (Necrotic wound on top of right foot. Wound on top of left foot. 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 MAYELIN GONGORA III DO Mar 17, 2019 09:57
[2019-03-17] MEDS ORDERED: DEXAMETHASONE SOD PHOS 4 MG/ML VIAL ONE (10:29)
[2019-03-17] MEDS ORDERED: ONDANSETRON PF 4 MG/2 ML VIAL. ONE (10:29)
[2019-03-17] MEDS ORDERED: LIDOCAINE 2% PF 5 ML VIAL. ONE (10:29)
[2019-03-17] MEDS ORDERED: PROPOFOL 20 ML IV ONE (10:29)
[2019-03-17] MEDS ORDERED: BUPIVACAINE MPF 0.5% 30 ML VIAL. ONE (10:55)
[2019-03-17] MEDS ORDERED: LIDOCAINE 1% 20 ML VIAL. ONE (10:55)
[2019-03-17] MEDS ORDERED: ePHEDrine PF IN SALINE 50 MG/10 ML SYRINGE. IV ONE ×2 (11:36→11:57)
[2019-03-17] MEDS ORDERED: SEVOFLURANE 16 TO 30 MINUTES. IH ONE (11:53)
--- NOTE | 2019-03-17 12:08 | PDOC4 ---
Operative Note Operative Note Date of procedure: 03/17/2019 Surgeon: Trevor Diane Asst.: None Preoperative diagnosis: Dorsal right foot wound Postoperative diagnosis: Same Procedure performed: Excisional irrigation and debridement to wound approximately 8 cm in diameter and 3-4 mm deep Application of wound VAC to wound less than 25 cm Anesthesia: Gen. Findings: Necrotic tissue and small amount of gross purulence in skin and subcutaneous tissue Specimens: Tissue sent for culture Complications: None Blood loss: 5 mL Tourniquet time: None used Reason for procedure: Patient is a 88-year-old female who developed worsening appearance of a dorsal foot wound and I was asked to see her in consultation. Given the appearance of the wound I recommended the above procedure and her family elected to proceed. Description of procedure: Patient was greeted in the preoperative area by myself for the correct extremity was verified and marked. She was taken to the operative suite maintained on her scheduled antibiotics. Once in the operative room, she was transferred gently supine to the operating room table and secured to the bed with all pressure points padded and had successful induction of a general anesthetic. We then prepped and draped the right lower extremity are usual sterile fashion using Betadine paint. We then conducted our standard preoperative timeout. After this, I washed over the wound with sterile fluid to that are visualized. I then excised skin and subcutaneous tissue with a Rominger and scalpel as well as curet to remove any obviously necrotic tissue. There was some bleeding at the base of the wound. The wound did not go down to a depth of her tendons. After this, irrigated the wound out with 2000 L of sterile fluid. Hemostasis was achieved a couple points with electrocautery. I then fashioned a wound VAC sponge and secured it with the adhesive using a small amount of Xeroform at the edges as well. I ensured the wound VAC had a good seal. After this, she was awakened and transferred gently supine to the hospital bed and taken to PACU in a stable and extubated condition. Postoperative plan is to readmitted under the care of the hospitalist. I'll follow along. TREVOR DIANE II, MD Mar 17, 2019 12:08
[2019-03-17] MEDS ORDERED: fentaNYL PF VIAL 100 MCG/2 ML VIAL ONE (12:10)
[2019-03-17] MEDS ORDERED: PROCHLORPERAZINE 10 MG/2 ML VIAL. ONE (12:11)
[2019-03-17] MEDS: fentaNYL PF VIAL 100 MCG/2 ML VIAL IV PRN ×2 (12:15→12:30)
[2019-03-17] MEDS ORDERED: IV RINGERS,LACTATED 1000ML 1,000 ML IV SCH (12:17)
[2019-03-17] MEDS ORDERED: PROCHLORPERAZINE 10 MG/2 ML VIAL. IV PRN (12:30)
[2019-03-17] MEDS ORDERED: ONDANSETRON PF 4 MG/2 ML VIAL. IV PRN (12:30)
[2019-03-17] MEDS ORDERED: fentaNYL PF VIAL 100 MCG/2 ML VIAL IV PRN (12:30)
[2019-03-17] MEDS ORDERED: MORPHINE SULFATE 2 MG/ML VIAL. IV PRN (12:30)
[2019-03-17] MEDS ORDERED: HYDROmorphone 2 MG/ML VIAL IV PRN (12:30)
[2019-03-17] MEDS: MICAFUNGIN 100 MG in IV DEXTROSE 5% 100ML 100 ML IV SCH (15:24)
[2019-03-17] MEDS: DAPTOmycin (GENERIC) IVPB 420 MG in IV NORMAL SALINE 50ML 50 ML IV SCH (16:39)
[2019-03-17] MEDS: MULTIVITAMIN with MINERAL TABLET. PO SCH (17:20)
[2019-03-17] MEDS: ASCORBIC ACID 500 MG TABLET PO SCH (17:20)
[2019-03-18 02:45] VITALS: BP 103/55
[2019-03-18] MEDS: MEROPENEM 500 MG in IV NORMAL SALINE 50ML 50 ML IV SCH (05:12)
[2019-03-18 07:00] VITALS: BP 104/50
--- NOTE | 2019-03-18 08:05 | PDOC ---
ORTHO PROGRESS NOTES Subjective Patient states minimal pain at this time. Post-op Day: 1 Procedure excisional I&D right foot wound Vitals Vital Signs Date Time Temp Pulse Resp B/P (MAP) Pulse Ox O2 Delivery O2 Flow Rate FiO2 03/18/19 02:45 98.7 66 20 103/55 (71) 92 98.7 03/17/19 19:45 Room Air Notes Patient asleep upon entering room. Assessment and Plan POD #1 Excisional I&D right foot wound with woiund vac placement. wound care and vac changes per schedule KASSANDRA GRIFFITH APRN Mar 18, 2019 08:05
[2019-03-18] MEDS: MULTIVITAMIN with MINERAL TABLET. PO SCH (08:45)
[2019-03-18] MEDS: LACTOBACILLUS RHAMNOSUS GG 1 CAPSULE. PO SCH (08:45)
[2019-03-18] MEDS: ASCORBIC ACID 500 MG TABLET PO SCH (08:45)
--- NOTE | 2019-03-18 08:59 | NUR ---
IP: Pt is from [facility] and refuses a mrsa screen or Nozin/CHG decolonization, therefore pt to be in contact precautions until one or the other is accomplished.
--- NOTE | 2019-03-18 09:01 | NUR ---
SW following pt. NICK faxed updates to [place]. Per RN, pt has wound vac and mostly refuses things. SW will continue to follow.
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
[2019-03-18 11:00] VITALS: BP 94/52
--- NOTE | 2019-03-18 11:04 | SNU/HH DC ---
DISCHARGE ORDERS DISCHARGE INFORMATION: FINAL DIAGNOSIS Problems Medical Problems: (1) Bilateral lower leg cellulitis Status: Acute CONDITION ON DISCHARGE: Stable CODE STATUS: Code Status: Full CORRECTION: SNF STAY <30 DAYS: Yes HOSPICE: HOSPICE: No HOSPICE EVAL & TREAT: No LTAC: ADMIT TO LTAC: No POST DISCHARGE ORDERS: ACTIVITY ORDERS: Activity as tolerated WEIGHT BEARING STATUS: As tolerated BATHING ORDERS: Shower-keep dressing dry, No Tub Bath until see Dr. PARRA AFTER DISCHARGE: Cardiac WOUND/INCISION CARE: Keep wound/cast CDI FOLLOW-UP: ADDITIONAL FOLLOW-UP: Wound care as needed to change dressings, etc. TREATMENT/EQUIPMENT ORDERS: ADAPTIVE EQUIPMENT NEEDED: None Physical Therapy For: Evalulation/Treatment Occupational Therapy For: Evaluation/Treatment DISCHARGE MEDICATIONS: Home Meds Reported Medications Docusate Sodium (DOCUSATE SODIUM) 100 Mg Capsule, 1 CAP PO HS for constipation for 30 Days, #30 CAP 0 Refills 03/11/19 Acetaminophen (TYLENOL) 325 Mg Tablet, 2 TAB PO PRN Q6HRS PRN for PAIN, #30 TAB 08/18/17 Hydrocodone Bit/Acetaminophen (HYDROCODONE-APAP 5-325 ) 1 Each Tablet, 1 TAB PO PRN Q6HRS PRN for PAIN, TAB 0 Refills 05/10/17 Discontinued Reported Medications Neomy Sulf/Bacitra/Polymyxin B (TRIPLE ANTIBIOTIC OINTMENT) 1 Each Packet, 1 EACH TP, PKT 08/18/17 Prochlorperazine Maleate (COMPAZINE) 25 Mg Supp.rect, 25 MG RC PRN Q4-6HRS PRN for NAUSEA/VOMITING, SUPP.RECT 08/18/17 Bismuth Subsalicylate (PEPTO-BISMOL) 262 Mg/15 Ml Oral.susp, 30 ML PO PRN Q1HR PRN for DIARRHEA, MISC 08/18/17 Na Phos,M-B/Na Phos,Di-Ba (FLEET ENEMA) 133 Ml Enema, 1 EACH RC ONCE PRN for CONSTIPATION, #1 BOTTLE 08/18/17 Mag Hydrox/Aluminum Hyd/Simeth (Maalox Advanced Suspension) 355 Ml Oral.susp, 30 ML PO PRN Q4HRS PRN for GAS / BLOATING, MISC 08/18/17 Loperamide Hcl (ANTI-DIARRHEA) 2 Mg Tablet, 2 MG PO PRN PRN for DIARRHEA, TAB 08/18/17 Loperamide Hcl (ANTI-DIARRHEA) 2 Mg Tablet, 4 MG PO PRN PRN for DIARRHEA, TAB 08/18/17 Guaifenesin/Dextromethorphan (DIABETIC TUSSIN DM LIQUID) 118 Ml Liquid, 10 ML PO PRN Q6HRS PRN for COUGH, LIQUID 08/18/17 Acetaminophen (ACETAMINOPHEN) 500 Mg Tablet, 2 TAB PO PRN Q6HRS PRN for PAIN, #60 TAB 1 Refill 08/18/17 Nicotine (NICODERM CQ 14mg) 1 Each Patch.td24, 1 PATCH TP DAILY, #14 PATCH 08/18/17 Alprazolam (ALPRAZOLAM) 0.5 Mg Tablet, 1 TAB PO PRN, #30 TAB 05/10/17 Acetaminophen (ACETAMINOPHEN) 160 Mg/5 Ml Oral.susp, 650 MG PO PRN Q4HRS, MISC 05/10/17 Magnesium Hydroxide (MILK OF MAGNESIA) 2,400 Mg/10 Ml Oral.susp, 2400 MG PO PRN DAILY, MISC 05/10/17 Bisacodyl (BISACODYL) 10 Mg Supp.rect, 10 MG RC PRN DAILY PRN for CONSTIPATION, SUPP.RECT 0 Refills 05/10/17 Donepezil Hcl (DONEPEZIL HCL) 5 Mg Tablet, 1 TAB PO HS, #30 TAB 5 Refills 05/10/17 Cholecalciferol (Vitamin D3) (VITAMIN D3) 1,000 Unit Tablet, 1 TAB PO DAILY, #30 TAB 5 Refills 05/10/17 MAYELIN GONGORA III DO Mar 18, 2019 11:04
--- NOTE | 2019-03-18 11:05 | PDOC ---
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 Pt is irritable and suspicious of staff. Chart reviewed. Saw and examined foot with infectious disease, necrotic on top of foot worse on right. 03/17/19 Pt seen and examined by me. Pt irritable and angry at staff Resting comfortably Chart reviewed KATHI RN 03/18/19 Pt seen and examined by me Resting comfortably Chart reviewed KATHI RN Vitals/I&O Vitals/I&O: Vital Signs Date Time Temp Pulse Resp B/P (MAP) Pulse Ox O2 Delivery O2 Flow Rate FiO2 03/18/19 08:00 Room Air 03/18/19 07:00 98.2 67 18 104/50 (68) 92 98.2 I & O 03/17/19 03/17/19 03/18/19 15:00 23:00 07:00 Intake Total 250 ml 0 ml Output Total 5 ml Balance -5 ml 250 ml 0 ml Physical Exam Physical Exam: GENERAL: Lying down, irritable, HEENT: Oral cavity and pharynx is clear. Left mandaeism chronic wound NECK: Supple LUNGS: Clear anteriorly HEART: S1, S2. ABDOMEN: Soft, nontender EXTREMITIES: Without clubbing, cyanosis bilaterally. ,left foot s/p debridement Left foot ulcer dry, less red and minimal edema. SKIN: Otherwise, warm without signs of rash. NEUROLOGIC: Alert, confused General: Alert, No acute distress Heart: Regular rate Lungs: Clear, Other (No respiratory distress) Abdomen: Soft, No tenderness Extremities: No edema, Other (we Speed's Pulses) Skin: No rashes, Other (Necrotic wound on top of right foot. Wound on top of left foot. 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 Medications: Current Medications Medications (Trade) Dose Ordered Sig/Taty Route PRN Reason Start Time Stop Time Status Last Admin Dose Admin Fentanyl Citrate (Fentanyl 2ml Vial) 50 mcg PRN Q5MIN PRN IV MODERATE TO SEVERE PAIN 03/17/19 12:30 03/18/19 12:29 03/17/19 12:30 Prochlorperazine Edisylate (Compazine) 5 mg PACU PRN PRN IV NAUSEA, MRX1 03/17/19 12:30 03/18/19 12:29 03/17/19 12:15 Multivitamins (Thera M Plus) 1 tab DAILY PO 03/17/19 17:00 03/18/19 08:45 Ascorbic Acid (Vitamin C) 500 mg DAILY PO 03/17/19 17:00 03/18/19 08:45 CASTLECHRISTOPHERL K III DO Mar 18, 2019 11:05
[2019-03-18] MEDS ORDERED: AMOXICILLIN/K CLAV 875/125MG TABLET. PO SCH (12:00)
[2019-03-18] MEDS ORDERED: DOXYCYCLINE HYCLATE 100 MG TABLET PO SCH (12:00)
--- NOTE | 2019-03-18 12:51 | NUR ---
Wound Care: Follow up to remove wound vac from R dorsal foot wound. Wounds cleansed, pictured and measured (see detailed assessment). Pt is discharging back to [facility] today, orange sheet left with Bharti ONEILL to send with pt on DC for wound care recommendations. No further follow up planned at this time. Pt will resume wound care at the facility under Laureen Denis APRN.
--- NOTE | 2019-03-18 13:20 | NUR ---
SW following pt. Orders faxed to [facility] and pt will transport via facility arranged w/c van at 1400. RN notified and left VM to pt's Arjun MILLER. Packet on chart and discussed with Lucie at [facility].
--- NOTE | 2019-03-18 14:45 | NUR ---
Discharge Note: [facility]UL[facility] MOS[facility] Discharge instructions and discharge home medications reviewed with Other facility and a copy given. All questions have been answered and understanding verbalized. The following instructions and handouts were given: discharge instructions, new prescriptions,wound care instructions. Discontinued lines and drains: Peripheral IV discontinued intact. Patient discharged to [facility] with Transport Personnel via Wheelchair
--- NOTE | 2019-03-23 11:14 | DS ---
DATE OF DISCHARGE: 03/18/2019 ADMISSION DIAGNOSIS: Bilateral lower extremity cellulitis. DISCHARGE DIAGNOSIS: Resolving cellulitis. PROCEDURE: Left dorsal foot debridement. HOSPITAL COURSE: The patient is a pleasant elderly female who presented with the bilateral lower extremity cellulitis. We admitted the patient, gave her IV antibiotics. Consult Orthopedics. They did a debridement. She returned to her baseline, we discharged to shelter. DISPOSITION: Skilled. ACTIVITY: As tolerated. DIET: Low sodium. MEDICATIONS: Please see the MRAD. TOTAL TIME: 34 minutes. MAYELIN GONGORA DO DR: FARTUN/pascale JOB#: [id number] / [id number]
== END 2019-03-18 14:50 | DRG 571 ==
LOC: ER 10:04 → 5 SOUTH 10:38
PROVIDERS: ADMIT Internal Medicine; ATTEND Internal Medicine
PROC: 0JBQ0ZZ Excision of Right Foot Subcutaneous Tissue and Fascia, Open Approach (ICD-10-PCS; principal; 2019-03-17 11:30)
DX: L03.115 Cellulitis of right lower limb (principal); E87.2 Acidosis; J90 Pleural effusion, not elsewhere classified; J98.11 Atelectasis; L03.116 Cellulitis of left lower limb; B35.9 Dermatophytosis, unspecified; F02.80 Dementia in other diseases classified elsewhere, unspecified severity, without behavioral disturbance, psychotic disturbance, mood disturbance, and anxiety; G30.9 Alzheimer's disease, unspecified; S91.301A Unspecified open wound, right foot, initial encounter; S91.302A Unspecified open wound, left foot, initial encounter; Z82.49 Family history of ischemic heart disease and other diseases of the circulatory system; Z87.891 Personal history of nicotine dependence; Z91.19 Patient's noncompliance with other medical treatment and regimen; Z96.649 Presence of unspecified artificial hip joint; Z96.659 Presence of unspecified artificial knee joint; Z87.440 Personal history of urinary (tract) infections
CPT/HCPCS: 36415; 71045; 80053; 83605; 83880; 85007; 85025; 85610; 85730; 87040; 87071; 87075; A7015; J0171; J0696; J0780; J0878; J1100; J2001; J2185; J2248; J2405; J2704; J3010; J3490; 99285-25; A4461; G0378

== ENCOUNTER 2019-03-31 17:23 | Emergency (ER) | payer MEDICARE, MEDICAID ==
[~2019-03-31] VITALS: Ht 162.6 cm; Wt 77.1 kg
[~2019-03-31 17:23] MED LIST changes: +DOCU100C28 PO
[2019-03-31] MEDS ORDERED: DIPHTH,PERTUSS(ACELL),TET TOX 0.5 ML DISP.SYRIN. VAX IM ONE (18:30)
--- NOTE | 2019-03-31 18:46 | PHYS DOC ---
Past Medical History Past Medical History: Dementia, Seizure, Other Additional Past Medical Histor: "BLADDER CONTROL PROBLEMS","MEMORY PROBLEMS" ,ALZHEIMER'S Past Surgical History: Hip Replacement, Knee Replacement Alcohol Use: Heavy Drug Use: None Adult General Chief Complaint Chief Complaint: MECHANICAL FALL HPI HPI 88 yo female who presents to the ER via EMS after an unwitnessed fall at the [facility]. Patient is on no blood thinning medications, she has underlying dementia. Reportedly patient fell from wheelchair and was found on the floor. ROS is limited 2/2 patient's medication condition. Per nursing she complains of pain to her right hip. She as well has an abrasion to her forehead, no active bleeding. Patient does not know exactly what happened when asked. Review of Systems Review of Systems ROS unable to obtain 2/2 patient's underlying dementia/chronic medical condition Current Medications Current Medications Current Medications Medications (Trade) Dose Ordered Sig/Taty Start Time Stop Time Status Last Admin Dose Admin Diphtheria/ Tetanus/Acell Pertussis (Boostrix) 0.5 ml ONCE ONCE 03/31/19 18:30 03/31/19 18:35 DC 03/31/19 18:59 0.5 ML Allergies Allergies Allergies Coded Allergies Type Severity Reaction Last Updated Verified No Known Drug Allergies 09/16/14 No Physical Exam Physical Exam Constitutional: Well developed, well nourished, no acute distress, non-toxic appearance. [] HENT: Normocephalic, abrasion to forehead, bilateral external ears normal, oropharynx moist, no oral exudates, nose normal. [] Eyes: PERRLA, EOMI, conjunctiva normal, no discharge. [] Neck: Normal range of motion, no tenderness, supple, no stridor. [] Cardiovascular:Heart rate regular rhythm, no murmur [] Lungs & Thorax: Bilateral breath sounds clear to auscultation [] Abdomen: Bowel sounds normal, soft, no tenderness, no masses, no pulsatile masses. [] Skin: Warm, dry, no erythema, no rash. [] Back: No tenderness, no CVA tenderness. [] Extremities: TTP right hip, no edema. [] Neurologic: Alert and oriented X 1, no focal deficits noted. [] Psychologic: Affect normal, judgement normal, mood normal. [] Current Patient Data Vital Signs Vital Signs Date Time Temp Pulse Resp B/P (MAP) Pulse Ox O2 Delivery O2 Flow Rate FiO2 03/31/19 17:36 98.5 86 14 175/92 (119) 94 Room Air 98.5 Lab Values Laboratory Tests Test 03/31/19 19:25 03/31/19 21:05 White Blood Count 9.5 x10^3/uL (4.0-11.0) Red Blood Count 4.78 x10^6/uL (3.50-5.40) Hemoglobin 14.2 g/dL (12.0-15.5) Hematocrit 42.6 % (36.0-47.0) Mean Corpuscular Volume 89 fL (79-100) Mean Corpuscular Hemoglobin 30 pg (25-35) Mean Corpuscular Hemoglobin Concent 34 g/dL (31-37) Red Cell Distribution Width 14.1 % (11.5-14.5) Platelet Count 259 x10^3/uL (140-400) Neutrophils (%) (Auto) 82 % (31-73) H Lymphocytes (%) (Auto) 5 % (24-48) L Monocytes (%) (Auto) 12 % (0-9) H Eosinophils (%) (Auto) 0 % (0-3) Basophils (%) (Auto) 1 % (0-3) Neutrophils # (Auto) 7.8 x10^3/uL (1.8-7.7) H Lymphocytes # (Auto) 0.5 x10^3/uL (1.0-4.8) L Monocytes # (Auto) 1.1 x10^3/uL (0.0-1.1) Eosinophils # (Auto) 0.0 x10^3/uL (0.0-0.7) Basophils # (Auto) 0.1 x10^3/uL (0.0-0.2) Sodium Level 135 mmol/L (136-145) L Potassium Level 4.1 mmol/L (3.5-5.1) Chloride Level 101 mmol/L (98-107) Carbon Dioxide Level 23 mmol/L (21-32) Anion Gap 11 (6-14) Blood Urea Nitrogen 13 mg/dL (7-20) Creatinine 1.0 mg/dL (0.6-1.0) Estimated GFR (Cockcroft-Gault) 52.6 BUN/Creatinine Ratio 13 (6-20) Glucose Level 129 mg/dL (70-99) H Calcium Level 9.2 mg/dL (8.5-10.1) Total Bilirubin 0.4 mg/dL (0.2-1.0) Aspartate Amino Transferase (AST) 25 U/L (15-37) Alanine Aminotransferase (ALT) 23 U/L (14-59) Alkaline Phosphatase 92 U/L (46-116) Troponin I Quantitative < 0.017 ng/mL (0.000-0.055) Total Protein 7.4 g/dL (6.4-8.2) Albumin 2.8 g/dL (3.4-5.0) L Albumin/Globulin Ratio 0.6 (1.0-1.7) L Urine Collection Type U cath Urine Color Yellow Urine Clarity Clear Urine pH 6.0 Urine Specific Pillow 1.025 Urine Protein Negative mg/dL (NEG-TRACE) Urine Glucose (UA) Negative mg/dL (NEG) Urine Ketones (Stick) Trace mg/dL (NEG) Urine Blood Negative (NEG) Urine Nitrite Negative (NEG) Urine Bilirubin Negative (NEG) Urine Urobilinogen Dipstick 1.0 mg/dL (0.2 mg/dL) Urine Leukocyte Esterase Negative (NEG) Urine RBC 0 /HPF (0-2) Urine WBC 0 /HPF (0-4) Urine Squamous Epithelial Cells Few /LPF Urine Bacteria 0 /HPF (0-FEW) Urine Mucus Mod /LPF Laboratory Tests 03/31/19 19:25 Laboratory Tests 03/31/19 19:25 EKG EKG [] Radiology/Procedures Radiology/Procedures [facility] [address] [place], [place] [id number] IMAGING REPORT Signed PATIENT: IRA MOSESACCOUNT: [id number] : 1930 LOCATION: ER AGE: 88 SEX: F EXAM STATUS: REG ER ORD. PHYSICIAN: STEVE KIM MD REASON: fall, abrasion to head, unknown LOC, no blood thinning meds PROCEDURE: CT HEAD WO CONTRAST CT HEAD WO CONTRAST History: Fall, abrasion to the head Comparison: None. Technique: Noncontrast CT imaging was performed of the head. Exposure: One or more of the following individualized dose reduction techniques were utilized for this examination: 1. Automated exposure control 2. Adjustment of the mA and/or kV according to patient size 3. Use of iterative reconstruction technique. Findings: No convincing acute intracranial hemorrhage is identified. Exam is degraded by motion, also patient's head tilted in the gantry during exam. There is similar mild third and lateral ventriculomegaly likely due to atrophy. There is again multifocal low-density of the supratentorial parenchyma bilaterally. There is right frontal temporal region scalp hematoma. Visualized paranasal sinuses and mastoid air cells are overall aerated. Impression: 1. No acute intracranial hemorrhage is identified. There is supratentorial atrophy. Scattered ill-defined low-density of the supratentorial parenchyma bilaterally is nonspecific, more commonly due to chronic microvascular ischemic disease in a patient this age. Electronically signed by: Angel Dowd MD (03/31/2019 8:38 PM) [facility] DICTATED and SIGNED BY: ANGEL DOWD MD DATE: 03/31/192037 [] Course & Med Decision Making Course & Med Decision Making Pertinent Labs and Imaging studies reviewed. (See chart for details) []88 yo female who presents to the ER via EMS after an unwitnessed fall at the [facility]. Patient is on no blood thinning medications, she has underlying dementia. Reportedly patient fell from wheelchair and was found on the floor. ROS is limited 2/2 patient's medication condition. Per nursing she complains of pain to her right hip. She as well has an abrasion to her forehead, no active bleeding. Patient does not know exactly what happened when asked. labs/imaging reviewed No evidence of acute fracture appreciated to right hip Labs reviewed, no UTI Head CT negative for acute process Plan dc back to skilled nursing Forehead without lac, abrasion Boostrix provided Dragon Disclaimer Dragon Disclaimer This electronic medical record was generated, in whole or in part, using a voice recognition dictation system. Departure Departure Impression: Primary Impression: Fall Additional Impressions: Contusion of head Contusion of hip, right Disposition: 03 TRANSFER SNF Condition: STABLE Referrals: AUSTIN PAEZ MD (PCP) Patient Instructions: Contusion, [id number], Fall Prevention and Home Safety, [id number] Additional Instructions: Recommend follow up with PCP 3 - 5 days Return to the ER with worsening symptoms, intractable pain, fever, altered menta l status Tylenol/Motrin as needed for pain Imaging without acute fracture CT head without acute intracranial process Problem Qualifiers Primary Impression: Fall Encounter type: initial encounter Qualified Codes: W19.XXXA - Unspecified fall, initial encounter Additional Impressions: Contusion of head Encounter type: initial encounter Contusion of head detail: other part of head Qualified Codes: S00.83XA - Contusion of other part of head, initial encounter Contusion of hip, right Encounter type: initial encounter Qualified Codes: S70.01XA - Contusion of right hip, initial encounter STEVE KIM MD Mar 31, 2019 18:46
[2019-03-31 19:44] LABS: BASO # 0.1 x10^3/uL (0.0-0.2); BASO % 1 % (0-3); EOS % 0 % (0-3); HEMATOCRIT 42.6 % (36.0-47.0); HEMOGLOBIN 14.2 g/dL (12.0-15.5); LYMPH # 0.5 x10^3/uL (1.0-4.8); LYMPH % 5 % (24-48); MEAN CORPUSCULAR HEMOGLOBIN 30 pg (25-35); MEAN CORPUSCULAR HGB CONC 34 g/dL (31-37); MEAN CORPUSCULAR VOLUME 89 fL (79-100); MONO # 1.1 x10^3/uL (0.0-1.1); MONO % 12 % (0-9); NEUT # 7.8 x10^3/uL (1.8-7.7); NEUT % 82 % (31-73); PLATELET COUNT 259 x10^3/uL (140-400); RED BLOOD COUNT 4.78 x10^6/uL (3.50-5.40); RED CELL DISTRIBUTION WIDTH 14.1 % (11.5-14.5); WHITE BLOOD COUNT 9.5 x10^3/uL (4.0-11.0)
[2019-03-31 20:05] LABS: CALCIUM 9.2 mg/dL (8.5-10.1); GFR 52.6; POTASSIUM 4.1 mmol/L (3.5-5.1)
[2019-03-31 20:14] LABS: ALBUMIN 2.8 g/dL (3.4-5.0); ALBUMIN/GLOBULIN RATIO 0.6 (1.0-1.7); TOTAL BILIRUBIN 0.4 mg/dL (0.2-1.0); TOTAL PROTEIN 7.4 g/dL (6.4-8.2)
--- NOTE | 2019-03-31 20:41 | RAD ---
CT HEAD WO CONTRAST History: Fall, abrasion to the head Comparison: None. Technique: Noncontrast CT imaging was performed of the head. Exposure: One or more of the following individualized dose reduction techniques were utilized for this examination: 1. Automated exposure control 2. Adjustment of the mA and/or kV according to patient size 3. Use of iterative reconstruction technique. Findings: No convincing acute intracranial hemorrhage is identified. Exam is degraded by motion, also patient's head tilted in the gantry during exam. There is similar mild third and lateral ventriculomegaly likely due to atrophy. There is again multifocal low-density of the supratentorial parenchyma bilaterally. There is right frontal temporal region scalp hematoma. Visualized paranasal sinuses and mastoid air cells are overall aerated. Impression: 1. No acute intracranial hemorrhage is identified. There is supratentorial atrophy. Scattered ill-defined low-density of the supratentorial parenchyma bilaterally is nonspecific, more commonly due to chronic microvascular ischemic disease in a patient this age. Electronically signed by: Brandin Dickson MD (03/31/2019 8:38 PM) [facility]
[2019-03-31 21:19] LABS: BILIRUBIN,URINE NEGATIVE (NEG); CLARITY,URINE CLEAR; COLOR,URINE YELLOW; NITRITE,URINE NEGATIVE (NEG); PROTEIN,URINE NEGATIVE (NEG-TRACE)
[2019-03-31 21:29] LABS: BACTERIA,URINE 0 /HPF (0-FEW); RBC,URINE 0 /HPF (0-2); SQUAMOUS EPITHELIAL CELL,UR FEW /LPF; WBC,URINE 0 /HPF (0-4)
[2019-03-31 21:45] VITALS: BP 110/56
--- NOTE | 2019-04-01 00:04 | RAD ---
Examination: 2 views of the right hip HISTORY: History of fall, right hip pain COMPARISON: None available. FINDINGS: Right total hip arthoplasty changes in normal alignment. No acute fracture identified. IMPRESSION: Right total hip arthroplasty changes. Electronically signed by: Patricio Vivar MD (04/01/2019 12:01 AM) [facility] [id number]
--- NOTE | 2019-04-01 05:33 | EKG ---
[facility] [address] [place] [address] Test Date: 2019-03-31 Test Time: 19:00:08 Pat Name: IRA MOSES Department: Room: Gender: F Clinical Staff Rn: : 1930 Requested By: STEVE KIM Order Number: [id number] Reading MD: Measurements Intervals [place] Rate: 90 P: 44 SC: 176 QRS: -16 QRSD: 126 T: 114 QT: 382 QTc: 471 Interpretive Statements SINUS RHYTHM COMPLEX(ES) WITH ABERRANT INTRAVENTRICULAR CONDUCTION LEFTWARD AXIS LEFT BUNDLE BRANCH BLOCK ABNORMAL ECG No previous ECG available for comparison
== END 2019-03-31 22:00 | disposition home or self-care (01) ==
LOC: ER 17:23
DX: S70.01XA Contusion of right hip, initial encounter (principal); S00.83XA Contusion of other part of head, initial encounter; R51 Headache; G30.9 Alzheimer's disease, unspecified; F02.80 Dementia in other diseases classified elsewhere, unspecified severity, without behavioral disturbance, psychotic disturbance, mood disturbance, and anxiety; Z96.649 Presence of unspecified artificial hip joint; W05.0XXA Fall from non-moving wheelchair, initial encounter; Y93.89 Activity, other specified; Y92.89 Other specified places as the place of occurrence of the external cause; Y99.8 Other external cause status
CPT/HCPCS: 36415; 70450; 73502; 80053; 81001; 84484; 85025; 90471; 90715; 93005; 99285-25

== ENCOUNTER 2019-07-25 05:26 | Emergency (ER) | payer MEDICARE, MEDICAID ==
[~2019-07-25] VITALS: Ht 152.4 cm; Wt 60.0 kg
[~2019-07-25 05:26] MED LIST changes: +ALBU2.5V8 NEB; +AMOX1TAB10 PO; +DOXY100T PO; +MAG30ORA2 PO; -MAGN2400 PO; +MAGN24003 PO
--- NOTE | 2019-07-25 07:34 | RAD ---
PQRS Compliance Statement: One or more of the following individualized dose reduction techniques were utilized for this examination: 1. Automated exposure control 2. Adjustment of the mA and/or kV according to patient size 3. Use of iterative reconstruction technique CT HEAD AND CERVICAL SPINE WITHOUT CONTRAST History: Comparison: None. Procedure: Axial images are obtained of the head from the skull base through the vertex without IV contrast. Noncontrast helical CT of the cervical spine was performed. Axial, sagittal, and coronal reconstructions were obtained. Findings: The ventricles and sulci are prominent, consistent with age-related cerebral atrophy. There is moderate supratentorial white matter hypoattenuation. This is a nonspecific finding but is commonly due to chronic small vessel ischemic disease in a patient of this age. No mass-effect, midline shift, hemorrhage or obvious acute infarction is identified. Basilar cisterns are patent. Bone windows demonstrate no significant calvarial abnormality. There is right lateral frontal scalp soft tissue injury and hematoma. The visualized paranasal sinuses are clear. Mastoid air cells are well aerated. Image quality is degraded due to motion artifact. There is no obvious acute fracture. There is grade 1 anterolisthesis of C2 on C3, C3 on C4, C4 on C5, and C7 on T1. There are no perched or jumped facet joints. The facet joints are hypertrophic. There is disc space narrowing and degenerative endplate changes of C5/C6 and C6/C7. There is also uncinate process hypertrophy at these levels. Visualized soft tissues of the neck demonstrate no significant abnormalities. Lung apices not imaged. IMPRESSION: 1. No acute intracranial abnormality. Moderate senescent changes. 2. Right lateral frontal scalp hematoma. 3. No acute fracture of the cervical spine. Electronically signed by: Blake Espinoza MD (07/25/2019 7:31 AM) [id number]
[2019-07-25] MEDS ORDERED: LIDOCAINE 1%/EPI 1:100,000 20 ML VIAL. ONE (07:53)
[2019-07-25 09:07] VITALS: BP 154/88
--- NOTE | 2019-07-25 09:09 | PHYS DOC ---
Past Medical History Past Medical History: Dementia Additional Past Medical Histor: BLE CELLULITIS, ALZHEIMERS, STAPH, PSUEDOMONAS Past Surgical History: Other Additional Past Surgical Histo: UNKNOWN Smoking Status: Unknown if ever smoked Alcohol Use: None Drug Use: None Adult General Chief Complaint Chief Complaint: MECHANICAL FALL HPI HPI Patient is a 89 year old female longterm resident resents with accidental fall from bed. Patient rolled out of bed striking lateral side of her head. Patient is a large cauliflower-like lesion over her right temporal scalp which is actively bleeding. Patient does not recall loss of consciousness, denies headache and neck pain. Patient is not on antiplatelet or anticoagulations therapy. Patient does not have any other pain or injury complaint at this time. She is in a facility that has multiple patient's been treated for COVD. ] Review of Systems Review of Systems ROS as per HPI All other systems were reviewed and found to be within normal limits, except as documented in this note. Current Medications Current Medications Current Medications Medications (Trade) Dose Ordered Sig/Taty Start Time Stop Time Status Last Admin Dose Admin Lidocaine/ Epinephrine (LIDOCAINE 1%-EPI 1:100,000 Multi-Dose) 20 ml STK-MED ONCE 07/25/19 07:53 07/25/19 07:53 DC Allergies Allergies Allergies Coded Allergies Type Severity Reaction Last Updated Verified No Known Drug Allergies 09/16/14 No Physical Exam Physical Exam Constitutional: Well developed, well nourished, no acute distress, non-toxic appearance. [] HENT: Normocephalic, large cawliflower lesion R protestant scalp, min bleeding, bilateral external ears normal, oropharynx moist, nose normal. [] Eyes: PERRLA, EOMI, conjunctiva normal, no discharge. [] Neck: Normal range of motion. [] Cardiovascular:Heart rate regular rhythm, no murmur [] Lungs & Thorax: Bilateral breath sounds clear to auscultation [] Abdomen: Bowel sounds sheryl. [] Extremities: No tenderness, no cyanosis, no clubbing, ROM intact, no edema. [] Neurologic: Alert and oriented X 1, normal motor function, normal sensory function, no focal deficits noted. [] Psychologic: Affect normal, judgement normal, mood normal. [] Current Patient Data Vital Signs Vital Signs Date Time Temp Pulse Resp B/P (MAP) Pulse Ox O2 Delivery O2 Flow Rate FiO2 07/25/19 09:07 80 22 96 07/25/19 05:35 134/93 (107) Room Air EKG EKG [] Radiology/Procedures Radiology/Procedures [CT head/c-spine: No acute tract findings per radiology report] Course & Med Decision Making Course & Med Decision Making Pertinent Labs and Imaging studies reviewed. (See chart for details) [Mechanical fall without acute intercranial hemorrhage or cervical spine injury. No neurologic deficits. CT Elissa reviewed and negative. Typical closed head injuries provided.] Dragon Disclaimer Dragon Disclaimer This electronic medical record was generated, in whole or in part, using a voice recognition dictation system. Departure Departure Impression: Primary Impression: Closed head injury Disposition: HOME, SELF-CARE Condition: STABLE Referrals: AUSTIN PAEZ MD (PCP) Patient Instructions: Head Injury, Adult, [id number] Additional Instructions: Please perform neuro checks every 4 hours for the next 24 hours. Return to the ED if new or concerning symptoms. KATYA KAM DO Jul 25, 2019 09:09
== END 2019-07-25 11:48 | disposition home or self-care (01) ==
LOC: ER 05:26
DX: S09.90XA Unspecified injury of head, initial encounter (principal); G30.9 Alzheimer's disease, unspecified; F02.80 Dementia in other diseases classified elsewhere, unspecified severity, without behavioral disturbance, psychotic disturbance, mood disturbance, and anxiety; W06.XXXA Fall from bed, initial encounter; Z91.81 History of falling; Y93.89 Activity, other specified; Y92.89 Other specified places as the place of occurrence of the external cause; Y99.8 Other external cause status
CPT/HCPCS: 70450; 72125; 99285-25

== ENCOUNTER 2019-09-10 15:45 | Emergency (ER) | payer MEDICARE, MEDICAID ==
[~2019-09-10] VITALS: Ht 162.6 cm; Wt 68.1 kg
[~2019-09-10 15:45] MED LIST changes: -ASCO500T2 PO; +ASCO500T4 PO; +MERO500V24 IV
[2019-09-10 17:03] VITALS: BP 96/46
[2019-09-10] MEDS ORDERED: LIDOCAINE/EPI/TETRACAINE TOPICAL GEL 3 ML. TP ONE (17:15)
--- NOTE | 2019-09-10 18:02 | RAD ---
Exam: CT head and cervical spine without contrast INDICATION: Fall out of bed, hit head TECHNIQUE: Sequential axial images through the head and cervical spine were obtained without the administration of IV contrast. Comparisons: 07/25/2019 FINDINGS: Head: No focal parenchymal lesion or hemorrhage is identified. There is no midline shift or sulcal effacement. Patchy hypodensity in the periventricular white matter similar to the prior study. No acute vascular territory infarction is identified. Mccarthy-white distinction is preserved. The ventricular system is within normal limits without compression hydrocephalus. The basal cisterns are well maintained. Extra cranial soft tissue contusion/hematoma in the scalp overlying the right frontotemporal region. The visualized portions of the paranasal sinuses and mastoid air cells are well-pneumatized. No acute fractures. Cervical spine: Vertebral body heights are well-maintained. Straightening of the cervical spine which may be positional. Fracture through the cervical spine is not identified. Multilevel degenerative change in the cervical spine with degenerative disc disease greatest at C5-C6 and C6-C7. Mild bilateral facet arthropathy is also noted diffusely throughout the cervical spine. Visualized paraspinal soft tissues are unremarkable. IMPRESSION: 1. Extra cranial soft tissue contusion/hematoma in the scalp overlying the right frontoparietal region without underlying osseous or intracranial abnormality. 2. Negative CT C-spine for acute traumatic injury. Exposure: One or more of the following in the visualized dose reduction techniques were utilized for this examination: 1. Automated exposure control 2. Adjustment of the MA and/or KV according to patient size Use of iterative of reconstructive technique Electronically signed by: Beny Faustin MD (09/10/2019 5:59 PM) [id number]
--- NOTE | 2019-09-10 18:20 | PHYS DOC ---
Past Medical History Past Medical History: Anxiety, Dementia Additional Past Medical Histor: BLE CELLULITIS, ALZHEIMERS, STAPH, PSUEDOMONAS Past Surgical History: Other Additional Past Surgical Histo: UNKNOWN Smoking Status: Former Smoker Alcohol Use: None Drug Use: None General Adult EDM: Chief Complaint: LACERATION/AVULSION HPI: HPI: Patient is a 89 year old female with a history of dementia, anxiety, who presents to the ED today from [facility] after rolling out of bed falling and hitting her head on the ground. prison staff denies patient having any loss of consciousness. 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 Patient is a very poor historian. She is demanding to go home. She is positive for COVID19. Review of Systems: Review of Systems: Constitutional: Denies fever or chills. [] Eyes: Denies change in visual acuity. [] HENT: Denies nasal congestion or sore throat. [] Respiratory: Denies cough or shortness of breath. [] Cardiovascular: Denies chest pain or edema. [] GI: Denies abdominal pain, nausea, vomiting, bloody stools or diarrhea. [] : Denies dysuria. [] Musculoskeletal: Denies back pain or joint pain. [] Integument: Hematoma on the right forehead/bleeding melanoma Neurologic: Denies headache, focal weakness or sensory changes. [] Psychiatric: Denies depression or anxiety. [] Heart Score: Risk Factors: Risk Factors: DM, Current or recent (<one month) smoker, HTN, HLP, family history of CAD, obesity. Risk Scores: Score 0 - 3: 2.5% MACE over next 6 weeks - Discharge Home Score 4 - 6: 20.3% MACE over next 6 weeks - Admit for Clinical Observation Score 7 - 10: 72.7% MACE over next 6 weeks - Early Invasive Strategies Current Medications: Current Medications Medications (Trade) Dose Ordered Sig/Taty Start Time Stop Time Status Last Admin Dose Admin Tetracaine/ Epinephrine/ Lidocaine (Let (Jpti-Lthzqwy-Bckdc) Gel) 3 ml 1X ONCE 09/10/19 17:15 09/10/19 17:16 DC Allergies: Allergies: Allergies Coded Allergies Type Severity Reaction Last Updated Verified No Known Drug Allergies 09/16/14 No Physical Exam: PE: Constitutional: Well developed, well nourished, no acute distress, non-toxic appearance. [] HENT: Normocephalic, atraumatic, bilateral external ears normal, oropharynx moist, no oral exudates, nose normal. [] Eyes: PERRLA, EOMI, conjunctiva normal, no discharge. [] Neck: Normal range of motion, no tenderness, supple, no stridor. [] Cardiovascular:Heart rate regular rhythm, no murmur [] Lungs & Thorax: Bilateral breath sounds clear to auscultation [] Abdomen: Bowel sounds normal, soft, no tenderness, no masses, no pulsatile masses. [] Skin: Warm, dry, melanoma/hematoma noted on the right frontalpariteal, bleeding is well controlled. Back: No tenderness, no CVA tenderness. [] Extremities: No tenderness, no cyanosis, no clubbing, ROM intact, no edema. [] Neurologic: Alert and oriented X 1-2, normal motor function, normal sensory function, no focal deficits noted. Cranial nerves II through XII intact Psychologic: Flat affect, Current Patient Data: Vital Signs: Vital Signs Date Time Temp Pulse Resp B/P (MAP) Pulse Ox O2 Delivery O2 Flow Rate FiO2 09/10/19 15:53 97.1 75 18 111/75 (87) 95 Room Air 97.1 EKG: EKG: [] Radiology/Procedures: Radiology/Procedures: []PROCEDURE: CT HEAD AND CERVICAL SPINE WO Exam: CT head and cervical spine without contrast INDICATION: Fall out of bed, hit head TECHNIQUE: Sequential axial images through the head and cervical spine were obtained without the administration of IV contrast. Comparisons: 07/25/2019 FINDINGS: Head: No focal parenchymal lesion or hemorrhage is identified. There is no midline shift or sulcal effacement. Patchy hypodensity in the periventricular white matter similar to the prior study. No acute vascular territory infarction is identified. Mccarthy-white distinction is preserved. The ventricular system is within normal limits without compression hydrocephalus. The basal cisterns are well maintained. Extra cranial soft tissue contusion/hematoma in the scalp overlying the right frontotemporal region. The visualized portions of the paranasal sinuses and mastoid air cells are well-pneumatized. No acute fractures. Cervical spine: Vertebral body heights are well-maintained. Straightening of the cervical spine which may be positional. Fracture through the cervical spine is not identified. Multilevel degenerative change in the cervical spine with degenerative disc disease greatest at C5-C6 and C6-C7. Mild bilateral facet arthropathy is also noted diffusely throughout the cervical spine. Visualized paraspinal soft tissues are unremarkable. IMPRESSION: 1. Extra cranial soft tissue contusion/hematoma in the scalp overlying the right frontoparietal region without underlying osseous or intracranial abnormality. 2. Negative CT C-spine for acute traumatic injury. Exposure: One or more of the following in the visualized dose reduction techniques were utilized for this examination: 1. Automated exposure control 2. Adjustment of the MA and/or KV according to patient size Use of iterative of reconstructive technique Electronically signed by: Beny Sorensen MD (09/10/2019 5:59 PM) [id number] DICTATED and SIGNED BY: BENY SORENSEN MD DATE: 09/10/191758 Course & Med Decision Making: Course & Med Decision Making Pertinent Labs and Imaging studies reviewed. (See chart for details) This is a 89-year-old female patient presenting to the ED today from [facility] to be evaluated after rolling out of bed falling and hitting her head, patient has no complaints in the ED. She does have a hematoma/melanoma lesion on the right frontoparietal region that was bleeding at the prison but no bleeding noted in the ED. CT of the head and cervical spine are negative. Patient was discharged. Follow-up with PCP in 1 to 2 weeks. Hector Disclaimer: Hector Disclaimer: This electronic medical record was generated, in whole or in part, using a voice recognition dictation system. Departure Departure Impression: Primary Impression: Fall Qualified Codes: W19.XXXA - Unspecified fall, initial encounter Additional Impression: Scalp hematoma Qualified Codes: S00.03XA - Contusion of scalp, initial encounter Disposition: HOME, SELF-CARE Condition: STABLE Referrals: AUSTIN PAEZ MD (PCP) follow up in 1 week Patient Instructions: Hematoma Additional Instructions: Your CAT scan of the head and cervical spine are negative for any acute findings. Keep the hematoma clean and dry. Follow-up with your own doctor in 1 to 2 weeks KANA KARIMI APRN September 10, 2019 18:20
== END 2019-09-10 18:51 | disposition home or self-care (01) ==
LOC: ER 15:45
DX: S00.03XA Contusion of scalp, initial encounter (principal); U07.1 COVID-19; F03.90 Unspecified dementia, unspecified severity, without behavioral disturbance, psychotic disturbance, mood disturbance, and anxiety; Z87.891 Personal history of nicotine dependence; W06.XXXA Fall from bed, initial encounter; Y93.89 Activity, other specified; Y92.89 Other specified places as the place of occurrence of the external cause; Y99.8 Other external cause status
CPT/HCPCS: 70450; 72125; 99285-25

== ENCOUNTER 2020-07-17 08:23 | Emergency (ER) | payer MEDICARE, MEDICAID ==
[~2020-07-17] VITALS: Ht 160 cm; Wt 72.7 kg
[2020-07-17 08:23] VITALS: BP 101/54
[~2020-07-17 08:23] MED LIST changes: -MULT1TAB90 PO; +MULT1TAB92 PO
--- NOTE | 2020-07-17 09:04 | RAD ---
Exam Date: 07/17/2020 8:[address] HEAD AND C-SPINE WO Indication: Reason: FELL OUT OF BED THJIS AM, HEAD INJURY / Spl. Instructions: / History: One or more of the following dose reduction techniques were utilized: *Automated exposure control (AEC) *Adjustment of mA and/or kV according to patient size *Use of iterative reconstruction technique *CT scan done according to ALARA, or ALARA/IMAGE GENTLY EXAMINATION: CT OF THE HEAD WITHOUT CONTRAST INDICATION: Trauma, head injury, headache; TECHNIQUE: Noncontrast helical axial CT images of the head were obtained. COMPARISON: July 25, 2019 FINDINGS: There is prominent right temporal scalp soft tissue swelling and hematoma. No depressed skull fractur e is seen. The ventricles and sulci are prominent consistent with cerebral volume loss. Patchy ill-defined low attenuation areas in the subcortical and periventricular white matter bilaterally are consistent with microvascular disease. There is no evidence of acute intracranial hemorrhage, extra-axial collecti on, mass effect, midline shift, or acute territorial infarct. The visualized paranasal sinuses, masto id air cells, and orbits are normal in appearance. IMPRESSION: Prominent right temporal scalp soft tissue swelling and hematoma without depressed skull fracture. No evidence for acute intracranial abnormality. Volume loss and microvascular disease. EXAMINATION: CT OF THE CERVICAL SPINE WITHOUT CONTRAST Clinical Indication: Cervical spine pain after trauma Technique: Thin cut helical axial CT images through the cervical spine were obtained without contrast on a multi-detector CT scanner. Source data was then reconstructed into sagittal and coronal planes. Findings: There is grade 1 anterolisthesis of C3 on C4, likely degenerative. Alignment is otherwise maintained. Vertebral body heights are maintained without acute fracture. Moderate multilevel degenerative change s are noted. No significant prevertebral soft tissue swelling is demonstrated. No severe central catherine l stenosis is seen. Impression: No evidence of acute cervical spine fracture. Electronically signed by: Santos Briceno MD (07/17/2020 9:01 AM) [facility]
--- NOTE | 2020-07-17 09:32 | PHYS DOC ---
Past Medical History Past Medical History: Anxiety, Dementia Additional Past Medical Histor: BLE CELLULITIS, ALZHEIMERS, STAPH, PSUEDOMONAS Past Surgical History: Other Additional Past Surgical Histo: UNKNOWN Smoking Status: Former Smoker Alcohol Use: None Drug Use: None General Adult EDM: Chief Complaint: MECHANICAL FALL HPI: HPI: Patient is a 89 year old female who was brought here by EMS from [facility] for evaluation of head injury. 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 This morning she fell out of bed and hit her forehead on the ground, no loss of consciousness. Patient denies any extremity pain, no back pain, no abdominal pain, no nausea vomiting. Patient has a contusion to her forehead area so the halfway called EMS to take her here for evaluation. Patient denies any neck pain, no nausea vomiting. Patient denies any headache. Review of Systems: Review of Systems: Constitutional: Denies fever or chills. [] Eyes: Denies change in visual acuity. [] HENT: Denies nasal congestion or sore throat. [] Respiratory: Denies cough or shortness of breath. [] Cardiovascular: Denies chest pain or edema. [] GI: Denies abdominal pain, nausea, vomiting, bloody stools or diarrhea. [] : Denies dysuria. [] Musculoskeletal: Denies back pain or joint pain. [] Integument: Denies rash. [] Neurologic: Denies headache, focal weakness or sensory changes. [] Endocrine: Denies polyuria or polydipsia. [] Lymphatic: Denies swollen glands. [] Psychiatric: Denies depression or anxiety. [] Heart Score: C/O Chest Pain: N/A Risk Factors: Risk Factors: DM, Current or recent (<one month) smoker, HTN, HLP, family history of CAD, obesity. Risk Scores: Score 0 - 3: 2.5% MACE over next 6 weeks - Discharge Home Score 4 - 6: 20.3% MACE over next 6 weeks - Admit for Clinical Observation Score 7 - 10: 72.7% MACE over next 6 weeks - Early Invasive Strategies Allergies: Allergies: Allergies Coded Allergies Type Severity Reaction Last Updated Verified No Known Drug Allergies 10/09/19 No Physical Exam: PE: Constitutional: Well developed, well nourished, no acute distress, non-toxic appearance. [] HENT: Skin abrasion on forehead area, there is a large ulcerated lesion on the right side forehead area due to squamous cell carcinoma, bilateral external ears normal, oropharynx moist, no oral exudates, nose normal. [] Eyes: PERRLA, EOMI, conjunctiva normal, no discharge. [] Neck: Normal range of motion, no tenderness, supple, no stridor. [] Cardiovascular:Heart rate regular rhythm, no murmur [] Lungs & Thorax: Bilateral breath sounds clear to auscultation [] Abdomen: Bowel sounds normal, soft, no tenderness, no masses, no pulsatile masses. [] Skin: Warm, dry, no erythema, no rash. [] Back: No tenderness, no CVA tenderness. [] Extremities: No tenderness, no cyanosis, no clubbing, ROM intact, no edema. Left BKA Neurologic: Alert and oriented X 3, normal motor function, normal sensory function, no focal deficits noted. [] Psychologic: Affect normal, judgement normal, mood normal. [] Current Patient Data: Vital Signs: Vital Signs Date Time Temp Pulse Resp B/P (MAP) Pulse Ox O2 Delivery O2 Flow Rate FiO2 07/17/20 08:23 97.4 77 18 101/54 (70 94 Room Air 97.4 EKG: EKG: [] Radiology/Procedures: Radiology/Procedures: [][facility] [address] [place] [address] IMAGING REPORT Signed PATIENT: IRA MOSESACCOUNT: [id number] : 1930 LOCATION: ER AGE: 89 SEX: F EXAM STATUS: PRE ER ORD. PHYSICIAN: AMARI CARABALLO DO REASON: FELL OUT OF BED THJIS AM, HEAD INJURY PROCEDURE: CT HEAD AND CERVICAL SPINE WO Exam Date: 07/17/2020 8:[address] HEAD AND C-SPINE WO Indication: Reason: FELL OUT OF BED THJIS AM, HEAD INJURY / Spl. Instructions: / History: One or more of the following dose reduction techniques were utilized: *Automated exposure control (AEC) *Adjustment of mA and/or kV according to patient size *Use of iterative reconstruction technique *CT scan done according to ALARA, or ALARA/IMAGE GENTLY EXAMINATION: CT OF THE HEAD WITHOUT CONTRAST INDICATION: Trauma, head injury, headache; TECHNIQUE: Noncontrast helical axial CT images of the head were obtained. COMPARISON: July 25, 2019 FINDINGS: There is prominent right temporal scalp soft tissue swelling and hematoma. No depressed skull fracture is seen. The ventricles and sulci are prominent consistent with cerebral volume loss. Patchy ill-defined low attenuation areas in the subcortical and periventricular white matter bilaterally are consistent with microvascular disease. There is no evidence of acute intracranial hemorrhage, extra-axial collection, mass effect, midline shift, or acute territorial infarct. The visualized paranasal sinuses, mastoid air cells, and orbits are normal in appearance. IMPRESSION: Prominent right temporal scalp soft tissue swelling and hematoma without depressed skull fracture. No evidence for acute intracranial abnormality. Volume loss and microvascular disease. EXAMINATION: CT OF THE CERVICAL SPINE WITHOUT CONTRAST Clinical Indication: Cervical spine pain after trauma Technique: Thin cut helical axial CT images through the cervical spine were obtained without contrast on a multi-detector CT scanner. Source data was then reconstructed into sagittal and coronal planes. Findings: There is grade 1 anterolisthesis of C3 on C4, likely degenerative. Alignment is otherwise maintained. Vertebral body heights are maintained without acute fracture. Moderate multilevel degenerative changes are noted. No significant prevertebral soft tissue swelling is demonstrated. No severe central canal stenosis is seen. Impression: No evidence of acute cervical spine fracture. Electronically signed by: Edilson Briceno MD (07/17/2020 9:01 AM) [facility] DICTATED and SIGNED BY: EDILSON BRICENO MD DATE: 07/17/20 [id number] 0 Course & Med Decision Making: Course & Med Decision Making Pertinent Labs and Imaging studies reviewed. (See chart for details) [] Dragon Disclaimer: Dragon Disclaimer: This electronic medical record was generated, in whole or in part, using a voice recognition dictation system. Departure Departure Impression: Primary Impression: Head injury Disposition: 01 DC HOME SELF CARE/HOMELESS Condition: STABLE Referrals: AUSTIN PAEZ MD (PCP) FOLLOW UP WITH YOUR DOCTOR NEEDED Patient Instructions: Head Injury, Adult Additional Instructions: Thank you for visiting our Emergency Department. We appreciate you trusting us with your care. If any additional problems come up don't hesitate to return to visit us. Please follow up with your primary care provider so they can plan additional care if needed and know about the problem that you had. If symptoms worsen come back to the Emergency Department. Any concerning symptoms that start such as chest pain, shortness of air, weakness or numbness on one side of the body, running high fevers or any other concerning symptoms return to the ER. AMARI CARABALLO DO Jul 17, 2020 09:32
== END 2020-07-17 10:35 | disposition home or self-care (01) ==
LOC: ER 08:23
DX: S00.83XA Contusion of other part of head, initial encounter (principal); F41.9 Anxiety disorder, unspecified; F03.90 Unspecified dementia, unspecified severity, without behavioral disturbance, psychotic disturbance, mood disturbance, and anxiety; Z87.891 Personal history of nicotine dependence; W06.XXXA Fall from bed, initial encounter; Y93.89 Activity, other specified; Y92.89 Other specified places as the place of occurrence of the external cause; Y99.8 Other external cause status
CPT/HCPCS: 70450; 72125; 99284

== ENCOUNTER 2020-10-02 03:13 | Emergency (ER) | payer MEDICARE, MEDICAID ==
[~2020-10-02] VITALS: Ht 157.5 cm; Wt 62.7 kg
[2020-10-02] MEDS ORDERED: ZIPRASIDONE IM 20 MG VIAL. IM ONE (03:30)
[2020-10-02 04:53] LABS: BASO # 0.1 x10^3/uL (0.0-0.2); BASO % 1 % (0-3); EOS # 0.2 x10^3/uL (0.0-0.7); EOS % 2 % (0-3); HEMATOCRIT 38.5 % (36.0-47.0); HEMOGLOBIN 12.7 g/dL (12.0-15.5); LYMPH # 1.3 x10^3/uL (1.0-4.8); LYMPH % 13 % (24-48); MEAN CORPUSCULAR HEMOGLOBIN 28 pg (25-35); MEAN CORPUSCULAR HGB CONC 33 g/dL (31-37); MEAN CORPUSCULAR VOLUME 85 fL (79-100); MONO # 1.4 x10^3/uL (0.0-1.1); MONO % 14 % (0-9); NEUT # 7.4 x10^3/uL (1.8-7.7); NEUT % 71 % (31-73); PLATELET COUNT 293 x10^3/uL (140-400); RED BLOOD COUNT 4.52 x10^6/uL (3.50-5.40); RED CELL DISTRIBUTION WIDTH 15.1 % (11.5-14.5); WHITE BLOOD COUNT 10.5 x10^3/uL (4.0-11.0)
[2020-10-02 05:14] LABS: BILIRUBIN,URINE NEGATIVE (NEG); CLARITY,URINE CLEAR; COLOR,URINE YELLOW; NITRITE,URINE NEGATIVE (NEG); PROTEIN,URINE NEGATIVE (NEG-TRACE); UROBILINOGEN,URINE 0.2 mg/dL (0.2 mg/dL)
[2020-10-02 05:21] LABS: AMORPHOUS SEDIMENT,UR PRESENT /HPF; BACTERIA,URINE 0 /HPF (0-FEW); RBC,URINE 0 /HPF (0-2); WBC,URINE RARE /HPF (0-4)
[2020-10-02 05:26] LABS: CREATININE 0.7 mg/dL (0.6-1.0)
[2020-10-02 05:33] LABS: ALBUMIN 2.4 g/dL (3.4-5.0); ALBUMIN/GLOBULIN RATIO 0.5 (1.0-1.7); TOTAL BILIRUBIN 0.4 mg/dL (0.2-1.0)
--- NOTE | 2020-10-02 05:37 | PHYS DOC ---
Past Medical History Past Medical History: Anxiety, Dementia Additional Past Medical Histor: BLE CELLULITIS, ALZHEIMERS, STAPH, PSUEDOMONAS Past Surgical History: Other Additional Past Surgical Histo: UNKNOWN Smoking Status: Former Smoker Alcohol Use: None Drug Use: None General Adult EDM: Chief Complaint: MECHANICAL FALL HPI: HPI: 89 yo F has medical history of dementia and COPD, presents to the ED from [facility] after patient was found down next to her bed. Facility reports known lesion to the side of her head that is now actively bleeding. Paperwork reviewed from facility. Patient is a full code and not on any anticoagulants. History obtained from EMS report, nursing and facility paperwork. History is limited due to dementia. In ED patient makes multiple disconnected statements including "I cannot move my arm." Review of Systems: Review of Systems: ROS limited due to dementia Heart Score: C/O Chest Pain: N/A Risk Factors: Risk Factors: DM, Current or recent (<one month) smoker, HTN, HLP, family history of CAD, obesity. Risk Scores: Score 0 - 3: 2.5% MACE over next 6 weeks - Discharge Home Score 4 - 6: 20.3% MACE over next 6 weeks - Admit for Clinical Observation Score 7 - 10: 72.7% MACE over next 6 weeks - Early Invasive Strategies Current Medications: Current Medications Medications (Trade) Dose Ordered Sig/Taty Start Time Stop Time Status Last Admin Dose Admin Ziprasidone (Geodon Im) 20 mg 1X ONCE 10/02/20 03:30 10/02/20 03:31 DC 10/02/20 03:44 20 MG Allergies: Allergies: Allergies Coded Allergies Type Severity Reaction Last Updated Verified No Known Drug Allergies 10/09/19 No Physical Exam: PE: Constitutional: Afebrile, does not directly answer questions/repeat history is with inconsistent pulses HENT: Very large, chronic appearing mass/abnormal growths over patient's right side of face w/vascular supply, slight/mild nonbrisk bleeding, Eyes: PERRLA, EOMI, conjunctiva normal, no discharge. Neck: Normal range of motion, supple, no midline step-offs Cardiovascular: S1/2 present, irregular rhythm Lungs & Thorax: Speaking in full sentences, bilateral equal chest rise, Abdomen: soft, no tenderness, Skin: Warm, dry, Back: No tenderness, no CVA tenderness. [] Extremities: No tenderness, no cyanosis, Neurologic: Minimally follows commands, [id number] = GCS14, no focal deficits noted. [] Psychologic: agitated mood with physical exam and attempts to hit me with abdominal exam, calm at rest Current Patient Data: Labs: Laboratory Tests Test 10/02/20 04:47 10/02/20 04:54 White Blood Count 10.5 x10^3/uL (4.0-11.0) Red Blood Count 4.52 x10^6/uL (3.50-5.40) Hemoglobin 12.7 g/dL (12.0-15.5) Hematocrit 38.5 % (36.0-47.0) Mean Corpuscular Volume 85 fL (79-100) Mean Corpuscular Hemoglobin 28 pg (25-35) Mean Corpuscular Hemoglobin Concent 33 g/dL (31-37) Red Cell Distribution Width 15.1 % (11.5-14.5) H Platelet Count 293 x10^3/uL (140-400) Neutrophils (%) (Auto) 71 % (31-73) Lymphocytes (%) (Auto) 13 % (24-48) L Monocytes (%) (Auto) 14 % (0-9) H Eosinophils (%) (Auto) 2 % (0-3) Basophils (%) (Auto) 1 % (0-3) Neutrophils # (Auto) 7.4 x10^3/uL (1.8-7.7) Lymphocytes # (Auto) 1.3 x10^3/uL (1.0-4.8) Monocytes # (Auto) 1.4 x10^3/uL (0.0-1.1) H Eosinophils # (Auto) 0.2 x10^3/uL (0.0-0.7) Basophils # (Auto) 0.1 x10^3/uL (0.0-0.2) Sodium Level 135 mmol/L (136-145) L Potassium Level 4.0 mmol/L (3.5-5.1) Chloride Level 103 mmol/L (98-107) Carbon Dioxide Level 22 mmol/L (21-32) Anion Gap 10 (6-14) Blood Urea Nitrogen 10 mg/dL (7-20) Creatinine 0.7 mg/dL (0.6-1.0) Estimated GFR (Cockcroft-Gault) 79.0 BUN/Creatinine Ratio 14 (6-20) Glucose Level 117 mg/dL (70-99) H Calcium Level 9.0 mg/dL (8.5-10.1) Total Bilirubin 0.4 mg/dL (0.2-1.0) Aspartate Amino Transferase (AST) 19 U/L (15-37) Alanine Aminotransferase (ALT) 13 U/L (14-59) L Alkaline Phosphatase 104 U/L (46-116) Troponin I Quantitative < 0.017 ng/mL (0.000-0.055) Total Protein 7.0 g/dL (6.4-8.2) Albumin 2.4 g/dL (3.4-5.0) L Albumin/Globulin Ratio 0.5 (1.0-1.7) L Urine Collection Type Unknown Urine Color Yellow Urine Clarity Clear Urine pH 7.0 (<5.0-8.0) Urine Specific Stanton <=1.005 (1.000-1.030) Urine Protein Negative mg/dL (NEG-TRACE) Urine Glucose (UA) Negative mg/dL (NEG) Urine Ketones (Stick) Negative mg/dL (NEG) Urine Blood Negative (NEG) Urine Nitrite Negative (NEG) Urine Bilirubin Negative (NEG) Urine Urobilinogen Dipstick 0.2 mg/dL (0.2 mg/dL) Urine Leukocyte Esterase Negative (NEG) Urine RBC 0 /HPF (0-2) Urine WBC Rare /HPF (0-4) Urine Squamous Epithelial Cells Few /LPF Urine Amorphous Sediment Present /HPF Urine Bacteria 0 /HPF (0-FEW) Laboratory Tests 10/02/20 04:47 Laboratory Tests 10/02/20 04:47 Vital Signs: Vital Signs Date Time Temp Pulse Resp B/P (MAP) Pulse Ox O2 Delivery O2 Flow Rate FiO2 10/02/20 03:15 97.7 83 18 119/62 (81) 96 Room Air 97.7 EKG: EKG: A. fib 82 bpm, left axis deviation, QRS 138, QTC 499, T wave inversion 1 and aVL, bundle branch block, no obvious ST elevations or ST depressions, Radiology/Procedures: Radiology/Procedures: IMAGING REPORT Signed PATIENT: IRA MOSESACCOUNT: [id number] : 1930 LOCATION: ER AGE: 89 SEX: F EXAM STATUS: REG ER ORD. PHYSICIAN: BENJY TELLES DO REASON: fall from bed PROCEDURE: CT HEAD AND CERVICAL SPINE WO Chest AP portable at 0521: Reason for examination: Fell with dementia. Comparison is made to previous study dated 09/02/2019. The heart size is normal. Mediastinum is unremarkable. Lung haley are clear. No acute bony abnormalities are seen in the thorax. IMPRESSION: No acute cardiopulmonary disease. Pelvis AP view: Right total hip prosthesis is present. There is bony demineralization. No acute fracture is seen in the pelvis. No abnormality seen at the sacrum or sacroiliac joints. Proximal left femur appears to be intact and joint space is maintained. IMPRESSION: Postop changes in the right hip with total hip prosthesis in place. No acute bony abnormalities in the pelvis. CT head without contrast: Comparison is made to previous study dated 07/17/2020. Helical images were obtained through the brain. No contrast was administered. Reconstruction was performed in coronal plane. Exposure: One or more of the following individualized dose reduction techniques were utilized for this examination: 1. Automated exposure control 2. Adjustment of the mA and/or kV according to patient size 3. Use of iterative reconstruction technique. Ventricular systems are dilated but symmetric and not showing significant change. No midline shift is seen. There is no evidence of intracranial hemorrhage, acute infarct, mass or edema. There are however patchy deep white matter changes in the frontal and parietal lobes consistent with microvascular ischemia. In the right frontal/temporal region laterally, there is a persistent enlarging soft tissue process extending at least 9 cm in AP dimension and 1.6 cm in thickness. This is now associated with lytic changes in the posterior lateral right frontal bone measuring 3.6 cm in length as well as some new soft tissue along the inner table of the skull in the region of the bony changes which extend 2.7 cm along the length of the inner table. No abnormalities of seen at the orbits. The paranasal sinuses and mastoid air cells are clear. IMPRESSION: Soft tissue process in the right frontal/temporal region laterally measuring at least 9 cm in AP dimension and 1.6 cm in thickness which is now associated with lytic changes in the posterior lateral right frontal bone measuring 3.6 cm in length as well as some new soft tissue changes along the inner table of the frontal bone just beneath the lytic lesion. This could reflect primary or metastatic malignant process. Recommend clinical correlation and follow-up. Cerebral atrophy with some microvascular ischemic changes. Electronically signed by: Jaz Maxwell MD (10/02/2020 5:51 AM) [facility] DICTATED and SIGNED BY: JAZ MAXWELL MD DATE: 10/02/20 [id number] 0 Course & Med Decision Making: Course & Med Decision Making Pertinent Labs and Imaging studies reviewed. (See chart for details) Concern for fall from bed in the setting of no anticoagulation and chronic appearing mass over her right head. Facility was called by RN-she was informed patient is not tolerating any wound care to the site. CT report printed to take to facility for primary care follow-up. Will discharge home with strict ED return precautions for repeat head injury. Encouraged urgent outpatient follow- up with PMD and oncology. Life-threatening processes were considered but are low suspicion at this time, given history, physical exam and ED workup. Pt was educated on all prescription medications and adverse effects. All patient's questions were answered and pt was stable at time of discharge. Life/limb-threatening differential includes but is not limited to, intracranial hemorrhage, diffuse axonal injury, spinal cord syndrome, unstable cervical fracture or SCIWORA, fractures or joint dislocations, neurovascular injuries, organ injury or laceration, pneumothorax, pneumoperitoneum, pericardial tamponade, unstable pelvic fracture, compartment syndrome, flail chest or respiratory distress, burn injury or asphyxiation I spoken with the patient and her caregivers. I explained the patient's condition, diagnoses and treatment plan based on the information available to me at this time. I have answered the patient and her caregiver's questions and addressed any concerns. The patient and her caregivers have a good understanding of patient's diagnosis, condition and treatment plan as can be expected at this point. Vital signs have been stable. Patient's condition is stable and appropriate for discharge from the emergency department. Patient will pursue further outpatient evaluation with primary care physician or other designated or consulting physician as outlined in the discharge instructions. The patient and/or caregivers are agreeable to this plan of care and follow-up instructions have been explained in detail. The patient and/or caregivers have received these instructions in written form and have expressed an understanding of the discharge instructions. The patient and/or caregivers are aware that any significant change of condition or worsening of symptoms should prompt immediate return to this or the closest emergency department or call to 911. Hector Disclaimer: Hector Disclaimer: This electronic medical record was generated, in whole or in part, using a voice recognition dictation system. Departure Departure Impression: Primary Impression: Fall Additional Impressions: Agitation requiring sedation protocol Abnormal CT of brain Disposition: HOME / SELF CARE / HOMELESS Condition: STABLE Referrals: AUSTIN PAEZ MD (PCP) follow up within [address] findings Patient Instructions: Fall Prevention and Home Safety, Sedation or General Anesthesia, Adult, Care After, Sedation, Moderate, Adult Additional Instructions: FOLLOW UP WITH: FOR DEFINITIVE MANAGEMENT of CT findings Hematology/Oncology [facility] [address] [facility] [address] [place] [address] EMERGENCY DEPARTMENT GENERAL DISCHARGE INSTRUCTIONS Thank you for coming to [facility] Emergency Department (ED) today and trusting us with you care. We trust that you had a positive experience in our Emergency Department. If you wish to speak to the department management, you may call the Director at [phone]. YOUR FOLLOW UP INSTRUCTIONS ARE FOLLOWS: 1. Do you have a private Doctor? If you do not have a private doctor, please ask for a resource list of physicians or clinics that may be able to assist you with follow up care. 2. The Emergency Physicain has interpreted your x-rays. The X-Ray specialist will also review them. If there is a change in the findings, you will be notified in 48 hours when at all possible. 3. A lab test or culture has been done, your results will be reviewed and you will be notified if you need a change in treatment. ADDITIONAL INSTRUCTIONS AND INFORMATION: 1. Your care today has been supervised by a physician who is specially trained in emergency care. Many problems require more than one evaluation for a complete diagnosis and treatment. We recommend that you schedule your follow up appointment as recommended to ensure complete treatment of you illness or injury. If you are unable to obtain follow up care and continue to have a problem, or if your condition worsens, we recommend that you return to the ED. 2. We are not able to safely determine your condition over the phone nor are we able to give sound medical advice over the phone. For these safety reasons, if you call for medical advice we will ask you to come to the ED for further evaluation. 3. If you have any questions regarding these discharge instructions please call the ED at [phone]. SAFETY INFORMATION: In the interest of safety, wellness, and injury prevention; we encourage you to wear your sealbelt, if you smoke; quite smoking, and we encourage family to use a protective helmet for bicycling and other sporting events that present an increased risk for head injury. IF YOUR SYMPTOMS WORSEN OR NEW SYMPTOMS DEVELOP, OR YOU HAVE CONCERNS ABOUT YOUR CONDITION; OR IF YOUR CONDITION WORSENS WHILE YOU ARE WAITING FOR YOUR FOLLOW UP APPOINTMENT; EITHER CONTACT YOUR PRIMARY CARE DOCTOR, THE PHYSICIAN WHOSE NAME AND NUMBER YOU WERE GIVEN, OR RETURN TO THE ED IMMEDIATELY. BENJY TELLES DO Oct 02, 2020 05:37
--- NOTE | 2020-10-02 05:54 | RAD ---
Chest AP portable at 0521: Reason for examination: Fell with dementia. Comparison is made to previous study dated 09/02/2019. The heart size is normal. Mediastinum is unremarkable. Lung haley are clear. No acute bony abnormali ties are seen in the thorax. IMPRESSION: No acute cardiopulmonary disease. Pelvis AP view: Right total hip prosthesis is present. There is bony demineralization. No acute fracture is seen in t he pelvis. No abnormality seen at the sacrum or sacroiliac joints. Proximal left femur appears to be intact and joint space is maintained. IMPRESSION: Postop changes in the right hip with total hip prosthesis in place. No acute bony abnormalities in the pelvis. CT head without contrast: Comparison is made to previous study dated 07/17/2020. Helical images were obtained through the brain. No contrast was administered. Reconstruction was perf ormed in coronal plane. Exposure: One or more of the following individualized dose reduction techniques were utilized for thi s examination: 1. Automated exposure control 2. Adjustment of the mA and/or kV according to patient size 3. Use of iterative reconstruction technique. Ventricular systems are dilated but symmetric and not showing significant change. No midline shift is seen. There is no evidence of intracranial hemorrhage, acute infarct, mass or edema. There are howev er patchy deep white matter changes in the frontal and parietal lobes consistent with microvascular i schemia. In the right frontal/temporal region laterally, there is a persistent enlarging soft tissue process extending at least 9 cm in AP dimension and 1.6 cm in thickness. This is now associated with lytic changes in the posterior lateral right frontal bone measuring 3.6 cm in length as well as some new soft tissue along the inner table of the skull in the region of the bony changes which extend 2.7 cm along the length of the inner table. No abnormalities of seen at the orbits. The paranasal sinuse s and mastoid air cells are clear. IMPRESSION: Soft tissue process in the right frontal/temporal region laterally measuring at least 9 cm in AP dime nsion and 1.6 cm in thickness which is now associated with lytic changes in the posterior lateral rig ht frontal bone measuring 3.6 cm in length as well as some new soft tissue changes along the inner ta ble of the frontal bone just beneath the lytic lesion. This could reflect primary or metastatic malig nant process. Recommend clinical correlation and follow-up. Cerebral atrophy with some microvascular ischemic changes. Electronically signed by: Jaqui Price MD (10/02/2020 5:51 AM) [facility]
--- NOTE | 2020-10-02 05:54 | EKG ---
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
[2020-10-02 06:25] VITALS: BP 105/58
== END 2020-10-02 06:40 | disposition home or self-care (01) ==
LOC: ER 03:13
DX: R93.0 Abnormal findings on diagnostic imaging of skull and head, not elsewhere classified (principal); R45.1 Restlessness and agitation; F41.9 Anxiety disorder, unspecified; J44.9 Chronic obstructive pulmonary disease, unspecified; G30.9 Alzheimer's disease, unspecified; F02.80 Dementia in other diseases classified elsewhere, unspecified severity, without behavioral disturbance, psychotic disturbance, mood disturbance, and anxiety; W18.39XA Other fall on same level, initial encounter; Y93.89 Activity, other specified; Y92.89 Other specified places as the place of occurrence of the external cause; Y99.8 Other external cause status
CPT/HCPCS: 36415; 70450; 71045; 72125; 72170; 80053; 81001; 83880; 84484; 85025; 93005; 96372; 99284; J3486

== ENCOUNTER 2020-10-19 10:36 | Emergency (ER) | payer MEDICARE, MEDICAID ==
[~2020-10-19] VITALS: Ht 165.1 cm; Wt 150.0 kg
[2020-10-19 10:44] VITALS: BP 141/58
[2020-10-19] MEDS ORDERED: LIDOCAINE/EPI/TETRACAINE TOPICAL GEL 3 ML. TP ONE (11:15)
--- NOTE | 2020-10-19 11:54 | RAD ---
EXAM: Chest, single view. HISTORY: Fall. COMPARISON: 10/02/2020 FINDINGS: A frontal view of the chest is obtained. There is stable diffuse increased interstitial opa city. No consolidation, pleural effusion or pneumothorax is seen. The heart is normal in size. There is a T12 compression fracture with vertebral plasty changes. IMPRESSION: Stable chronic appearing interstitial changes. No consolidated infiltrate is seen. Electronically signed by: Edwina Schmitt MD (10/19/2020 11:52 AM) [id number]
--- NOTE | 2020-10-19 12:35 | RAD ---
EXAM: Head and cervical spine CT without contrast. HISTORY: Fall. Laceration. TECHNIQUE: Computed tomographic images of the head and cervical spine were obtained without contrast. *One or more of the following individualized dose reduction techniques were utilized for this examina tion: 1. Automated exposure control. 2. Adjustment of the mA and/or kV according to patient size. 3. Use of iterative reconstruction technique. COMPARISON: 10/02/2020. FINDINGS: Head: There is a small left frontal scalp hematoma and laceration with associated foci of soft tissue gas. No foreign body is seen. There has been interval increase in a destructive lytic mass lesion wi th overlying soft tissue mass component involving the right frontal bone. The destructive osseous les ion component measures approximately 4.2 cm and the overlying soft tissue mass component measures pedrito roximately 10.0 cm. There is soft tissue extension beyond the inner cortex of the frontal bone result ing in effacement of the overlying frontal lobe sulci. There is no midline shift. There is moderate c erebral volume loss. There are cerebral white changes due to chronic small vessel disease. The orbits are unremarkable. There is mild paranasal sinus mucosal thickening. The mastoid air cells are clear. Cervical spine: There is mild multilevel listhesis. There is degenerative endplate remodeling with di sc space narrowing and osteophytosis primarily at C5-C6 and C6-C7. There is multilevel facet arthropa thy. The combination of degenerative changes results in mild right foraminal stenosis at C2-C3, sever e right and mild left foraminal stenosis at C3-C4, mild right foraminal stenosis at C4-C5 and moderat e right and mild left foraminal stenosis at C5-C6. The lung apices are unremarkable. IMPRESSION: 1. Small left frontal scalp soft tissue hematoma and laceration. No foreign body or fracture is seen in this location. 2. Progressive destructive lytic lesion involving the right frontal bone with associated overlying sc alp soft tissue mass and extension beyond the inner cortex of the calvarium to slightly efface the ov erlying frontal lobe sulci. Correlate with tissue sampling. 3. Cerebral atrophy and bilateral cerebral white matter changes, likely due to chronic small vessel d isease. 4. Degenerative change involving the cervical spine, resulting in stenosis at the aforementioned leve ls. Electronically signed by: Edwina Schmitt MD (10/19/2020 12:32 PM) [id number]
--- NOTE | 2020-10-19 13:48 | PHYS DOC ---
Past Medical History Past Medical History: Anxiety, Dementia Additional Past Medical Histor: BLE CELLULITIS, ALZHEIMERS, STAPH, PSUEDOMONAS Past Surgical History: Other Additional Past Surgical Histo: UNKNOWN Smoking Status: Former Smoker Alcohol Use: None Drug Use: None General Adult EDM: Chief Complaint: MECHANICAL FALL HPI: HPI: Patient is a 89 year old female with history of dementia, skin cancer to the right side of the head, presenting to the ED today from [facility] to be evaluated after being found on the floor next to her bed. It is unknown what time patient fell. Patient is uncooperative, verbally abus akila and swings at staff to hit. She is refusing to answer questions or be examined. She has a laceration to the forehead. Review of Systems: Review of Systems: Constitutional: Denies fever or chills. [] Eyes: Denies change in visual acuity. [] HENT: Denies nasal congestion or sore throat. [] Respiratory: Denies cough or shortness of breath. [] Cardiovascular: Denies chest pain or edema. [] GI: Denies abdominal pain, nausea, vomiting, bloody stools or diarrhea. [] : Denies dysuria. [] Musculoskeletal: Denies back pain or joint pain. [] Integument: Forehead laceration Neurologic: Denies headache, focal weakness or sensory changes. [] Psychiatric: Denies depression or anxiety. [] Heart Score: C/O Chest Pain: N/A Risk Factors: Risk Factors: DM, Current or recent (<one month) smoker, HTN, HLP, family hi story of CAD, obesity. Risk Scores: Score 0 - 3: 2.5% MACE over next 6 weeks - Discharge Home Score 4 - 6: 20.3% MACE over next 6 weeks - Admit for Clinical Observation Score 7 - 10: 72.7% MACE over next 6 weeks - Early Invasive Strategies Current Medications: Current Medications Medications (Trade) Dose Ordered Sig/Taty Start Time Stop Time Status Last Admin Dose Admin Tetracaine/ Epinephrine/ Lidocaine (Let (Plyt-Tufslca-Tiswf) Gel) 9 ml 1X ONCE 10/19/20 11:15 10/19/20 11:16 DC 10/19/20 11:31 9 ML Allergies: Allergies: Allergies Coded Allergies Type Severity Reaction Last Updated Verified No Known Drug Allergies 10/19/20 No Physical Exam: PE: Constitutional: Well developed, well nourished, no acute distress, non-toxic appearance. [] HENT: Normocephalic, atraumatic, bilateral external ears normal, oropharynx moist, no oral exudates, nose normal. [] Eyes: PERRLA, EOMI, conjunctiva normal, no discharge. [] Neck: Normal range of motion, no tenderness, supple, no stridor. [] Cardiovascular:Heart rate regular rhythm, no murmur [] Lungs & Thorax: Bilateral breath sounds clear to auscultation [] Abdomen: Bowel sounds normal, soft, no tenderness, no masses, no pulsatile masses. [] Skin: Mid forehead with a Y shaped laceration approximately 7 cm long. Bruising noted to the right side of the chest. Right forehead with a large skin cancer lesion with swelling to the right eye. Back: No tenderness, no CVA tenderness. [] Extremities: No tenderness, no cyanosis, no clubbing, ROM intact, no edema. [] Neurologic: Alert and oriented X 2-3, normal motor function, normal sensory function, no focal deficits noted. Cranial nerves II through XII intact Psychologic: Affect normal, judgement normal, mood normal. [] Current Patient Data: Vital Signs: Vital Signs Date Time Temp Pulse Resp B/P (MAP) Pulse Ox O2 Delivery O2 Flow Rate FiO2 10/19/20 10:44 97.9 77 20 141/58 (85) 98 Room Air 97.9 EKG: EKG: [] Radiology/Procedures: Radiology/Procedures: []PROCEDURE: CT HEAD AND CERVICAL SPINE WO EXAM: Head and cervical spine CT without contrast. HISTORY: Fall. Laceration. TECHNIQUE: Computed tomographic images of the head and cervical spine were obtained without contrast. *One or more of the following individualized dose reduction techniques were utilized for this examination: 1. Automated exposure control. 2. Adjustment of the mA and/or kV according to patient size. 3. Use of iterative reconstruction technique. COMPARISON: 10/02/2020. FINDINGS: Head: There is a small left frontal scalp hematoma and laceration with associated foci of soft tissue gas. No foreign body is seen. There has been interval increase in a destructive lytic mass lesion with overlying soft tissue mass component involving the right frontal bone. The destructive osseous lesion component measures approximately 4.2 cm and the overlying soft tissue mass component measures approximately 10.0 cm. There is soft tissue extension beyond the inner cortex of the frontal bone resulting in effacement of the overlying frontal lobe sulci. There is no midline shift. There is moderate cerebral volume loss. There are cerebral white changes due to chronic small vessel disease. The orbits are unremarkable. There is mild paranasal sinus mucosal thickening. The mastoid air cells are clear. Cervical spine: There is mild multilevel listhesis. There is degenerative endplate remodeling with disc space narrowing and osteophytosis primarily at C5- C6 and C6-C7. There is multilevel facet arthropathy. The combination of degenerative changes results in mild right foraminal stenosis at C2-C3, severe right and mild left foraminal stenosis at C3-C4, mild right foraminal stenosis at C4-C5 and moderate right and mild left foraminal stenosis at C5-C6. The lung apices are unremarkable. IMPRESSION: 1. Small left frontal scalp soft tissue hematoma and laceration. No foreign body or fracture is seen in this location. 2. Progressive destructive lytic lesion involving the right frontal bone with associated overlying scalp soft tissue mass and extension beyond the inner cortex of the calvarium to slightly efface the overlying frontal lobe sulci. Correlate with tissue sampling. 3. Cerebral atrophy and bilateral cerebral white matter changes, likely due to chronic small vessel disease. 4. Degenerative change involving the cervical spine, resulting in stenosis at the aforementioned levels. Electronically signed by: Edwina Schmitt MD (10/19/2020 12:32 PM) [id number] DICTATED and SIGNED BY: EDWINA SCHMITT MD DATE: 10/19/20 [id number] PROCEDURE: PORTABLE CHEST 1V EXAM: Chest, single view. HISTORY: Fall. COMPARISON: 10/02/2020 FINDINGS: A frontal view of the chest is obtained. There is stable diffuse increased interstitial opacity. No consolidation, pleural effusion or pneumothorax is seen. The heart is normal in size. There is a T12 compression fracture with vertebral plasty changes. IMPRESSION: Stable chronic appearing interstitial changes. No consolidated infiltrate is seen. Electronically signed by: Edwina Schmitt MD (10/19/2020 11:52 AM) [id number] DICTATED and SIGNED BY: EDWINA SCHMITT MD DATE: 10/19/20 [id number] Laceration/Wound Repair Wound Location: Forehead laceration Wound's Depth, Shape: Y Wound Length (cm): Approximately 7 cm Wound Explored: clean Irrigated w/ Saline (ccs): 20 Betadine Prep?: Yes Anesthesia: Let solution Volume Anesthetic (ccs): 9 cc Wound Repaired With: Ethilon Suture Size/Type: 4.0/interrupted sutures Number of Sutures: Approximately 11 Progress wound was left open to air Course & Med Decision Making: Course & Med Decision Making Pertinent Labs and Imaging studies reviewed. (See chart for details) This is a 89-year-old female patient with history of dementia in the ED today to be evaluated after being found on the floor at the [facility]. Is unknown what time she fell. Patient is verbally and physically abusive. Very hard to work with. She refused all her work-up in the ED, they were able to do a CT of the head and cervical spine which had nothing acute. They were able to do a chest x-ray as well which was negative. I was able to do the laceration on her forehead. Discharge to home/[facility]. Dragon Disclaimer: Dragren Disclaimer: This electronic medical record was generated, in whole or in part, using a voice recognition dictation system. Departure Departure Impression: Primary Impression: Fall Qualified Codes: W19.XXXA - Unspecified fall, initial encounter Additional Impression: Forehead laceration Qualified Codes: S01.81XA - Laceration without foreign body of other part of head, initial encounter Disposition: HOME / SELF CARE / HOMELESS Condition: STABLE Referrals: ASHA LOCK MD (PCP) follow up in one week Patient Instructions: Laceration Care, Adult, [id number] Additional Instructions: You were evaluated in the emergency room, you have a forehead laceration that was closed with stitches. They need to be removed in 1 week. Keep the area clean and dry. Please apply Neosporin to the area twice a day. Monitor the area for any signs of infection including but not limited to increased redness, warmth, yellow drainage from the area and see your doctor or come back to the ED if they occur KANA KARIMI APRN Oct 19, 2020 13:47
== END 2020-10-19 15:20 | disposition home or self-care (01) ==
LOC: ER 10:36
DX: S01.81XA Laceration without foreign body of other part of head, initial encounter (principal); R51.9 Headache, unspecified; M54.2 Cervicalgia; G30.9 Alzheimer's disease, unspecified; F02.80 Dementia in other diseases classified elsewhere, unspecified severity, without behavioral disturbance, psychotic disturbance, mood disturbance, and anxiety; Z87.891 Personal history of nicotine dependence; W18.39XA Other fall on same level, initial encounter; Y93.89 Activity, other specified; Y92.89 Other specified places as the place of occurrence of the external cause; Y99.8 Other external cause status
CPT/HCPCS: 12014; 70450; 71045; 72125; 99284-25